=== PATIENT | male | born 1960 | race Caucasian/White ===

== ENCOUNTER 2017-03-07 10:09 | Inpatient (IN) | payer OTHER ==
[2017-03-07 10:56] VITALS: BMI 18.3
--- NOTE | 2017-03-07 13:30 | HP ---
CIWA Score - CIWA Score Nausea/Vomitin Muscle Tremors: 3 Anxiety: 2 Agitation: 3 Paroxysmal Sweats: 1-Minimal Palms Moist Orientation: 0-Oriented Tacttile Disturbances: 2-Mild Itch/Numbness/Burn Auditory Disturbances: 2-Mild Harshness/Frighten Visual Disturbances: 1-Very Mild Sensitivity Headache: 2-Mild CIWA-Ar Total Score: 19 Admission ROS BHS - HPI Chief Complaint: I AM HERE FOR DETOX FROM ALCOHOL AND COCAINE Allergies/Adverse Reactions: Allergies Allergy/AdvReac Type Severity Reaction Status Date / Time No Known Allergies Allergy Verified 03/07/17 11:55 History of Present Illness: THIS 56 YEARS OLD MALE WITH ALCOHOL AND COCAINE DEPENDENCE,SEEKING DETOX,LAST TREATMENT [facility] 06/28/15 TO 07/02/15 MULTIPLE ADMISSIONS IN DETOX HIV SINCE 1999 ON MED PERIPHERAL NEUROPATHY LONGEST PERIOD SOBRIETY 10 YEARS NICOTINE DEPENDENCE WEIGHT LOSS Exam Limitations: No Limitations - Ebola screening Have you traveled outside of the country in the last 21 days: No Have you had contact with anyone from an Ebola affected area: No Have you been sick,other than usual withdrawal symptoms: No Do you have a fever: No - Review of Systems Constitutional: Loss of Appetite, Malaise, Night Sweats, Weakness, Unintentional Wgt. Loss EENT: reports: Nose Congestion Respiratory: reports: No Symptoms reported Cardiac: reports: Palpitations GI: reports: Nausea, Poor Appetite, Abdominal cramping : reports: No Symptoms Reported Musculoskeletal: reports: Back Pain, Muscle Pain Integumentary: reports: Dryness Neuro: reports: Headache, Tremors Endocrine: reports: No Symptoms Reported Hematology: reports: Other (HIV) Psychiatric: reports: No Sypmtoms Reported, Judgement Intact, Mood/Affect Appropiate, Orientated x3 Patient History - Patient Medical History Hx Anemia: No Hx Asthma: No Hx Chronic Obstructive Pulmonary Disease (COPD): No Hx Cancer: No Hx Cardiac Disorders: No Hx Congestive Heart Failure: No Hx Hypertension: No Hx Hypercholesterolemia: No Hx Pacemaker: No HX Cerebrovascular Accident: No Hx Seizures: No Hx Dementia: No Hx Diabetes: No Hx Gastrointestinal Disorders: No Hx Liver Disease: No Hx Genitourinary Disorders: No Hx Sexually Transmitted Disorders: No Hx Renal Disease (ESRD): No Hx Thyroid Disease: No Hx Human Immunodeficiency Virus (HIV): Yes (SINCE 1999 AND ON ATRIPLA; neuropathy) Hx Hepatitis C: No Hx Depression: No Hx Suicide Attempt: No Hx Bipolar Disorder: No Hx Schizophrenia: No Other Medical History: NO SUICIDAL,NO HOMICIDAL - Patient Surgical History Past Surgical History: Yes Hx Neurologic Surgery: No Hx Cataract Extraction: No Hx Cardiac Surgery: No Hx Lung Surgery: No Hx Breast Surgery: No Hx Breast Biopsy: No Hx Abdominal Surgery: No Hx Appendectomy: No Hx Cholecystectomy: No Hx Genitourinary Surgery: No Hx Section: No Hx Orthopedic Surgery: No Other Surgical History: bilateral inguinal hernia repair in 03/2014 Anesthesia Reaction: No - PPD History Previous Implant?: Yes Documented Results: Negative w/proof Implanted On Prior [facility] Admission?: Yes Date: 08/31/14 Results: 0 mm PPD to be Administered?: Yes - Smoking Cessation Smoking history: Current every day smoker Have you smoked in the past 12 months: Yes Aproximately how many cigarettes per day: 6 Cigars Per Day: 0 Hx Chewing Tobacco Use: No Initiated information on smoking cessation: Yes 'Breaking Loose' booklet given: 03/07/17 - Substance & Tx. History Hx Alcohol Use: Yes Hx Substance Use: Yes Substance Use Type: Alcohol, Cocaine - Substances Abused Alcohol-vodka Route: Oral Frequency: Daily Amount used: 1/2 pt. Age of first use: 22 Date of Last Use: 03/05/17 Cocaine Route: Inhalation Frequency: 1-3 times last 30 days Amount used: 20$ Age of first use: 37 Date of Last Use: 03/04/17 Family Disease History - Family Disease History Family History: Denies Family Disease History: CA: Grandparent (colon ca) Admission Physical Exam S - Vital Signs Vital Signs: Vital Signs - 24 hr 03/07/17 10:51 Temperature 98.1 F Pulse Rate 110 H Respiratory 20 Rate Blood Pressure 166/95 - Physical General Appearance: Yes: Moderate Distress, Thin, Tremorous, Irritable, Anxious HEENTM: Yes: Normal ENT Inspection, DARRIUS, Pharynx Normal Respiratory: Yes: Within Normal Limits, Lungs Clear, Normal Breath Sounds Neck: Yes: Within Normal Limits, Supple, Trachea in good position Breast: Yes: Within Normal Limits Cardiology: Yes: Tachycardia Abdominal: Yes: Within Normal Limits, Normal Bowel Sounds, Non Tender, Soft, Surgical Scar Genitourinary: Yes: Within Normal Limits Back: Yes: Muscle Spasm Musculoskeletal: Yes: full range of Motion, Gait Steady, Back pain, Muscle Pain Extremities: Yes: Normal Range of Motion, Tremors 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, Fully Oriented, Alert, Motor Strength 5/5, Normal Mood/Affect, Normal Response Integumentary: Yes: Dry Lymphatic: Yes: Within Normal Limits - Diagnostic (1) Alcohol dependence with uncomplicated withdrawal Current Visit: No Status: Acute (2) Cocaine dependence Current Visit: No Status: Acute Qualifiers: Substance use status: uncomplicated Qualified Code(s): F14.20 - Cocaine dependence, uncomplicated (3) HIV (human immunodeficiency virus infection) Current Visit: No Status: Chronic (4) Peripheral neuropathy Current Visit: No Status: Chronic Qualifiers: Peripheral neuropathy type: polyneuropathy associated with critical illness Qualified Code(s): G62.81 - Critical illness polyneuropathy (5) Weight decrease Current Visit: Yes Status: Acute (6) Nicotine dependence Current Visit: Yes Status: Acute Cleared for Admission [facility] - Detox or Rehab [facility] Level of Care: Medically Managed Detox Regimen/Protocol: Librium [facility] Breath Alcohol Content Breath Alcohol Content: 0 Urine Drug Screen - Results Drug Screen Negative: No Urine Drug Screen Results: JW-Cocaine
[2017-03-07] MEDS ORDERED: MAGNESIUM CITRATE 300 ML BOTTLE PO PRN (13:52)
[2017-03-07] MEDS ORDERED: diphenhydrAMINE HCL 50 MG CAPSULE PO PRN (13:52)
[2017-03-07] MEDS ORDERED: guaiFENesin/D-METHORPHAN HB 10 ML UNIT-DOSE CUPS PO PRN (13:52)
[2017-03-07] MEDS ORDERED: IBUPROFEN 400 MG TABLET (FP) PO PRN (13:52)
[2017-03-07] MEDS ORDERED: MAGNESIUM HYDROX 2400MG/30ML ORAL SUSPENSION 30 ML CUP PO PRN (13:52)
[2017-03-07] MEDS ORDERED: hydrOXYzine PAMOATE 50 MG CAPSULE (FP) PO PRN (13:52)
[2017-03-07] MEDS ORDERED: LOPERAMIDE HCL 2 MG CAPSULE PO PRN (13:52)
[2017-03-07] MEDS ORDERED: MAG HYDROX/AL HYDROX/SIMETH 30 ML UNIT-DOSE CUP PO PRN (13:52)
[2017-03-07] MEDS ORDERED: P-EPHED 60MG/TRIPROLIDI 2.5MG TABLET PO PRN (13:52)
[2017-03-07] MEDS ORDERED: MENTHOL/PHENOL 1 EACH UD MM PRN (13:52)
[2017-03-07] MEDS ORDERED: ACETAMINOPHEN 325 MG TABLET (FP) PO PRN (13:52)
[2017-03-07] MEDS ORDERED: chlordiazePOXIDE HCL 25 MG CAPSULE PO PRN (13:52)
[2017-03-07] MEDS ORDERED: chlordiazePOXIDE HCL 25 MG CAPSULE PO ONE (14:03)
[2017-03-07] MEDS: GABAPENTIN 300 MG CAPSULE (FP) PO SCH ×2 (15:26→22:21)
[2017-03-07] MEDS: NICOTINE 21 MG/24 HOURS TOPICAL PATCH TD SCH (15:26)
[2017-03-07] MEDS: chlordiazePOXIDE HCL 25 MG CAPSULE PO SCH ×2 (18:18→22:21)
[2017-03-07] MEDS ORDERED: PATIENT'S OWN MEDICATION (NON-FORMULARY) (Efavirenz/Emtricitab/Tenofovir 1 TAB) PO SCH (22:00)
[2017-03-07] MEDS: EFAVIRENZ 600 MG TABLET PO SCH (22:21)
[2017-03-07] MEDS: THIAMINE HCL 100 MG TABLET (FP) PO SCH (22:21)
[2017-03-07] MEDS: EMTRICITABINE 200MG/TENOFOVIR 300MG PO SCH (22:22)
[2017-03-07 23:34] LABS: URINE APPEARANCE CLEAR; URINE BILIRUBIN NEGATIVE (NEGATIVE); URINE BLOOD 1+ (NEGATIVE); URINE COLOR YELLOW; URINE GLUCOSE (UA) 1+ (NEGATIVE); URINE KETONE 2+ (NEGATIVE); URINE LEUK ESTERASE NEGATIVE (NEGATIVE); URINE NITRITE NEGATIVE (NEGATIVE); URINE UROBILINOGEN NEGATIVE mg/dL (0.2-1.0)
[2017-03-07 23:42] LABS: URINE PROTEIN 1+ (NEGATIVE)
[2017-03-07 23:59] LABS: URINE MUCUS RARE; URINE RBC <1 /hpf (0-3); URINE WBC 3 /hpf (3-5)
[2017-03-08] MEDS: GABAPENTIN 300 MG CAPSULE (FP) PO SCH ×3 (05:44→22:58)
[2017-03-08] MEDS: chlordiazePOXIDE HCL 25 MG CAPSULE PO SCH ×4 (05:45→22:58)
[2017-03-08 10:24] LABS: MCH 32.9 pg (25.7-33.7); MCHC 33.2 g/dl (32.0-35.9); MEAN CELL VOLUME 99.1 fl (80-96); MEAN PLT VOLUME 7.9 fl (7.5-11.1); PLATELET COUNT 208 K/MM3 (134-434); RDW 14.6 % (11.9-15.9); WHITE BLOOD COUNT 4.4 K/mm3 (4.0-10.0)
[2017-03-08] MEDS: NICOTINE 21 MG/24 HOURS TOPICAL PATCH TD SCH (11:14)
[2017-03-08] MEDS: PRENATAL VITAMINS W/ FOLIC ACID TABLET (FP) PO SCH (11:14)
[2017-03-08 11:40] LABS: ALBUMIN 4.5 g/dl (3.4-5.0); ALK PHOS 106 U/L (45-117); ANION GAP 14 (8-16); BILIRUBIN,TOTAL 1.1 mg/dL (0.2-1.0); CALCIUM 9.2 mg/dL (8.5-10.1); CO2 24 mmol/L (21-32); CREATININE 1.1 mg/dL (0.7-1.3); GLUCOSE,RANDOM 289 mg/dL (74-106); SGOT/AST 101 U/L (15-37); SGPT/ALT 66 U/L (12-78); TOT PROT 7.7 g/dl (6.4-8.2)
--- NOTE | 2017-03-08 11:53 | PN ---
S CIWA - CIWA Score Nausea/Vomitin Muscle Tremors: 3 Anxiety: 3 Agitation: 2 Paroxysmal Sweats: 1-Minimal Palms Moist Orientation: 0-Oriented Tacttile Disturbances: 1-Very Mild Itch/Numbness Auditory Disturbances: 1-Very Mild Visual Disturbances: 1-Very Mild Sensitivity Headache: 2-Mild CIWA-Ar Total Score: 17 BHS Progress Note (SOAP) Subjective: alert,irritable,anxious,interrupted sleep,tremor Objective: 03/08/17 11:51 Vital Signs Temperature 96.4 F L 03/08/17 09:54 Pulse Rate 104 H 03/08/17 09:54 Respiratory Rate 18 03/08/17 09:54 Blood Pressure 149/100 03/08/17 09:54 O2 Sat by Pulse Oximetry (%) ekg nsr Laboratory Last Values WBC 4.4 K/mm3 (4.0-10.0) 03/08/17 06:11 RBC 4.19 M/mm3 (4.00-5.60) 03/08/17 06:11 Hgb 13.8 GM/dL (11.7-16.9) 03/08/17 06:11 Hct 41.5 % (35.4-49) 03/08/17 06:11 MCV 99.1 fl (80-96) H 03/08/17 06:11 MCH 32.9 pg (25.7-33.7) 03/08/17 06:11 MCHC 33.2 g/dl (32.0-35.9) 03/08/17 06:11 RDW 14.6 % (11.9-15.9) 03/08/17 06:11 Plt Count 208 K/MM3 (134-434) 03/08/17 06:11 MPV 7.9 fl (7.5-11.1) 03/08/17 06:11 Sodium 137 mmol/L (136-145) 03/08/17 06:11 Potassium 4.3 mmol/L (3.5-5.1) 03/08/17 06:11 Chloride 99 mmol/L (98-107) 03/08/17 06:11 Carbon Dioxide 24 mmol/L (21-32) D 03/08/17 06:11 Anion Gap 14 (8-16) 03/08/17 06:11 BUN 18 mg/dL (7-18) D 03/08/17 06:11 Creatinine 1.1 mg/dL (0.7-1.3) D 03/08/17 06:11 Creat Clearance w eGFR > 60 (>60) 03/08/17 06:11 Random Glucose 289 mg/dL (74-106) H D 03/08/17 06:11 Calcium 9.2 mg/dL (8.5-10.1) 03/08/17 06:11 Total Bilirubin 1.1 mg/dL (0.2-1.0) H D 03/08/17 06:11 AST 101 U/L (15-37) H 03/08/17 06:11 ALT 66 U/L (12-78) D 03/08/17 06:11 Alkaline Phosphatase 106 U/L (45-117) D 03/08/17 06:11 Total Protein 7.7 g/dl (6.4-8.2) 03/08/17 06:11 Albumin 4.5 g/dl (3.4-5.0) 03/08/17 06:11 Urine Color Yellow 03/07/17 15:44 Urine Appearance Clear 03/07/17 15:44 Urine pH 5.0 (5.0-8.0) D 03/07/17 15:44 Ur Specific [place] >= 1.030 (1.005-1.025) H 03/07/17 15:44 Urine Protein 1+ (NEGATIVE) H 03/07/17 15:44 Urine Glucose (UA) 1+ (NEGATIVE) H 03/07/17 15:44 Urine Ketones 2+ (NEGATIVE) H 03/07/17 15:44 Urine Blood 1+ (NEGATIVE) H 03/07/17 15:44 Urine Nitrite Negative (NEGATIVE) 03/07/17 15:44 Urine Bilirubin Negative (NEGATIVE) 03/07/17 15:44 Urine Urobilinogen Negative mg/dL (0.2-1.0) 03/07/17 15:44 Urine RBC <1 /hpf (0-3) 03/07/17 15:44 Urine WBC 3 /hpf (3-5) 03/07/17 15:44 Ur Epithelial Cells Rare /hpf (FEW) 03/07/17 15:44 Urine Mucus Rare 03/07/17 15:44 RPR Titer Nonreactive (NONREACTIVE) 03/08/17 06:11 Assessment: 03/08/17 11:52 withdrawal symptom Plan: continue detox,bgm monitoring
[2017-03-08] MEDS ORDERED: FLU VACCINE QUAD 60 MCG/0.5 ML (MDV 17-18) IM ONE (12:00)
[2017-03-08] MEDS: EFAVIRENZ 600 MG TABLET PO SCH (22:58)
[2017-03-08] MEDS: THIAMINE HCL 100 MG TABLET (FP) PO SCH (22:58)
[2017-03-08] MEDS: EMTRICITABINE 200MG/TENOFOVIR 300MG PO SCH (22:59)
[2017-03-09] MEDS: GABAPENTIN 300 MG CAPSULE (FP) PO SCH ×3 (05:33→22:45)
[2017-03-09] MEDS: chlordiazePOXIDE HCL 25 MG CAPSULE PO SCH ×2 (05:35→10:43)
--- NOTE | 2017-03-09 09:51 | EKG ---
Test Reason : Blood Pressure : / mmHG Vent. Rate : 071 BPM Atrial Rate : 071 BPM P-R Int : 130 ms QRS Dur : 100 ms QT Int : 384 ms P-R-T Axes : 071 078 076 degrees QTc Int : 417 ms NORMAL SINUS RHYTHM NORMAL ECG NO PREVIOUS ECGS AVAILABLE Confirmed by MD RONA, LUCY ([id number]) on 03/09/2017 9:51:14 AM Referred By: Confirmed By:LUCY REA MD
[2017-03-09] MEDS: PRENATAL VITAMINS W/ FOLIC ACID TABLET (FP) PO SCH (10:42)
[2017-03-09] MEDS: NICOTINE 21 MG/24 HOURS TOPICAL PATCH TD SCH (10:43)
--- NOTE | 2017-03-09 13:08 | PN ---
S CIWA - CIWA Score Nausea/Vomitin Muscle Tremors: 3 Anxiety: 3 Agitation: 2 Paroxysmal Sweats: 1-Minimal Palms Moist Orientation: 0-Oriented Tacttile Disturbances: 1-Very Mild Itch/Numbness Auditory Disturbances: 1-Very Mild Visual Disturbances: 0-None Headache: 2-Mild CIWA-Ar Total Score: 16 BHS Progress Note (SOAP) Subjective: alert,irritable,anxious,interrupted sleep,tremor Objective: 03/09/17 13:06 Vital Signs Temperature 96.1 F L 03/09/17 11:03 Pulse Rate 105 H 03/09/17 11:03 Respiratory Rate 18 03/09/17 11:03 Blood Pressure 149/86 03/09/17 11:03 O2 Sat by Pulse Oximetry (%) Laboratory Last Values WBC 4.4 K/mm3 (4.0-10.0) 03/08/17 06:11 RBC 4.19 M/mm3 (4.00-5.60) 03/08/17 06:11 Hgb 13.8 GM/dL (11.7-16.9) 03/08/17 06:11 Hct 41.5 % (35.4-49) 03/08/17 06:11 MCV 99.1 fl (80-96) H 03/08/17 06:11 MCH 32.9 pg (25.7-33.7) 03/08/17 06:11 MCHC 33.2 g/dl (32.0-35.9) 03/08/17 06:11 RDW 14.6 % (11.9-15.9) 03/08/17 06:11 Plt Count 208 K/MM3 (134-434) 03/08/17 06:11 MPV 7.9 fl (7.5-11.1) 03/08/17 06:11 Sodium 137 mmol/L (136-145) 03/08/17 06:11 Potassium 4.3 mmol/L (3.5-5.1) 03/08/17 06:11 Chloride 99 mmol/L (98-107) 03/08/17 06:11 Carbon Dioxide 24 mmol/L (21-32) D 03/08/17 06:11 Anion Gap 14 (8-16) 03/08/17 06:11 BUN 18 mg/dL (7-18) D 03/08/17 06:11 Creatinine 1.1 mg/dL (0.7-1.3) D 03/08/17 06:11 Creat Clearance w eGFR > 60 (>60) 03/08/17 06:11 POC Glucometer 117 UNITS (()) 03/09/17 06:24 Random Glucose 289 mg/dL (74-106) H D 03/08/17 06:11 Calcium 9.2 mg/dL (8.5-10.1) 03/08/17 06:11 Total Bilirubin 1.1 mg/dL (0.2-1.0) H D 03/08/17 06:11 AST 101 U/L (15-37) H 03/08/17 06:11 ALT 66 U/L (12-78) D 03/08/17 06:11 Alkaline Phosphatase 106 U/L (45-117) D 03/08/17 06:11 Total Protein 7.7 g/dl (6.4-8.2) 03/08/17 06:11 Albumin 4.5 g/dl (3.4-5.0) 03/08/17 06:11 Urine Color Yellow 03/07/17 15:44 Urine Appearance Clear 03/07/17 15:44 Urine pH 5.0 (5.0-8.0) D 03/07/17 15:44 Ur Specific [place] >= 1.030 (1.005-1.025) H 03/07/17 15:44 Urine Protein 1+ (NEGATIVE) H 03/07/17 15:44 Urine Glucose (UA) 1+ (NEGATIVE) H 03/07/17 15:44 Urine Ketones 2+ (NEGATIVE) H 03/07/17 15:44 Urine Blood 1+ (NEGATIVE) H 03/07/17 15:44 Urine Nitrite Negative (NEGATIVE) 03/07/17 15:44 Urine Bilirubin Negative (NEGATIVE) 03/07/17 15:44 Urine Urobilinogen Negative mg/dL (0.2-1.0) 03/07/17 15:44 Urine RBC <1 /hpf (0-3) 03/07/17 15:44 Urine WBC 3 /hpf (3-5) 03/07/17 15:44 Ur Epithelial Cells Rare /hpf (FEW) 03/07/17 15:44 Urine Mucus Rare 03/07/17 15:44 RPR Titer Nonreactive (NONREACTIVE) 03/08/17 06:11 Assessment: 03/09/17 13:07 withdrawal symptom Plan: continue detox,bgm monitoring
[2017-03-09] MEDS: chlordiazePOXIDE 5 MG CAPSULE PO SCH ×2 (16:59→22:44)
[2017-03-09] MEDS: EFAVIRENZ 600 MG TABLET PO SCH (22:44)
[2017-03-09] MEDS: THIAMINE HCL 100 MG TABLET (FP) PO SCH (22:45)
[2017-03-09] MEDS: EMTRICITABINE 200MG/TENOFOVIR 300MG PO SCH (22:46)
[2017-03-10] MEDS: chlordiazePOXIDE 5 MG CAPSULE PO SCH ×2 (06:38→10:45)
[2017-03-10] MEDS: GABAPENTIN 300 MG CAPSULE (FP) PO SCH ×3 (06:38→22:00)
--- NOTE | 2017-03-10 09:43 | PN ---
S Progress Note (SOAP) Subjective: ALERT,IRRITABLE,ANXIOUS,INTERRUPTED SLEEP, Objective: 03/10/17 09:41 Vital Signs Temperature 97.7 F 03/10/17 06:00 Pulse Rate 101 H 03/10/17 06:00 Respiratory Rate 16 03/10/17 06:00 Blood Pressure 132/85 03/10/17 06:00 O2 Sat by Pulse Oximetry (%) 03/10/17 09:42 BGM 142 Assessment: 03/10/17 09:42 WITHDRAWAL SYMPTOM Plan: CONTINUE DETOX,,BGM MONITORING,DISCHARGE IN AM
[2017-03-10] MEDS: PRENATAL VITAMINS W/ FOLIC ACID TABLET (FP) PO SCH (10:45)
[2017-03-10] MEDS: NICOTINE 21 MG/24 HOURS TOPICAL PATCH TD SCH (10:45)
[2017-03-10] MEDS: chlordiazePOXIDE HCL 10 MG CAPSULE PO SCH ×2 (17:28→22:00)
[2017-03-10] MEDS: THIAMINE HCL 100 MG TABLET (FP) PO SCH (22:00)
[2017-03-10] MEDS: EFAVIRENZ 600 MG TABLET PO SCH (22:00)
[2017-03-10] MEDS: EMTRICITABINE 200MG/TENOFOVIR 300MG PO SCH (22:00)
[2017-03-11] MEDS: chlordiazePOXIDE HCL 10 MG CAPSULE PO SCH (06:30)
[2017-03-11] MEDS: GABAPENTIN 300 MG CAPSULE (FP) PO SCH (06:31)
[2017-03-11 06:46] VITALS: BP 137/99; PULSE 102; TEMP 97.9
--- NOTE | 2017-03-11 08:23 | DS ---
[facility] Detox Discharge Summary Admission Date: 03/07/17 Discharge Date: 03/11/17 - History Present History: Alcohol Dependence, Cocaine Dependence Additional Comments: FOLLOW UP WITH AFTER CARE PROGRAM ARRANGEMENT Pertinent Past History: HIV PERIPHERAL NEUROPATHY NICOTINE DEPENDENCE WEIGHT LOSS - Physical Exam Results Vital Signs: Vital Signs Temperature 97.9 F 03/11/17 06:45 Pulse Rate 102 H 03/11/17 06:45 Respiratory Rate 16 03/11/17 06:45 Blood Pressure 137/99 03/11/17 06:45 O2 Sat by Pulse Oximetry (%) Pertinent Admission Physical Exam Findings: WITHDRAWAL SYMPTOM - Treatment Hospital Course: Detox Protocol Followed, Detoxed Safely, Responded well, Discharged Condition Good Patient has Accepted a Rehab Referral to: DECLINED - Medication Discharge Medications: Ambulatory Orders Efavirenz/Emtricitab/Tenofovir [Atripla -] 1 tab PO DAILY 08/29/14 Gabapentin [Neurontin -] 800 mg PO Q8H 03/23/15 - Diagnosis (1) Alcohol dependence with uncomplicated withdrawal Current Visit: No Status: Acute (2) Cocaine dependence Current Visit: No Status: Acute Qualifiers: Substance use status: uncomplicated Qualified Code(s): F14.20 - Cocaine dependence, uncomplicated (3) HIV (human immunodeficiency virus infection) Current Visit: No Status: Chronic (4) Peripheral neuropathy Current Visit: No Status: Chronic Qualifiers: Peripheral neuropathy type: polyneuropathy associated with critical illness Qualified Code(s): G62.81 - Critical illness polyneuropathy (5) Weight decrease Current Visit: Yes Status: Acute (6) Nicotine dependence Current Visit: Yes Status: Acute - AMA Did Patient Leave Against Medical Advice: No
== END 2017-03-11 07:07 | disposition home or self-care (01) | DRG 774 ==
LOC: YASAS 10:09 → Y6N 12:58
PROVIDERS: ADMIT Internal Medicine; ATTEND Internal Medicine
PROC: HZ2ZZZZ Detoxification Services for Substance Abuse Treatment (ICD-10-PCS; principal; 2017-03-07)
DX: F10.230 Alcohol dependence with withdrawal, uncomplicated (principal); F14.20 Cocaine dependence, uncomplicated; F17.210 Nicotine dependence, cigarettes, uncomplicated; Z21 Asymptomatic human immunodeficiency virus [HIV] infection status; G62.81 Critical illness polyneuropathy; R00.0 Tachycardia, unspecified; Z87.898 Personal history of other specified conditions
CPT/HCPCS: 36415; 80053; 81003; 81015; 85027; 86593; 90688; 93005; 93010; G0008

== ENCOUNTER 2017-10-24 08:39 | Inpatient (IN) | payer OTHER ==
[2017-10-24 09:35] VITALS: BMI 17.7
--- NOTE | 2017-10-24 13:08 | HP ---
CIWA Score - CIWA Score Nausea/Vomitin-No Nausea/No Vomiting Muscle Tremors: 4-Moderate,w/Arms Extend Anxiety: 4-Mod. Anxious/Guarded Agitation: 3 Paroxysmal Sweats: 1-Minimal Palms Moist Orientation: 0-Oriented Tacttile Disturbances: 3-Moderate Itch/Numb/Burn (legs) Auditory Disturbances: 0-None Visual Disturbances: 0-None Headache: 1-Very Mild CIWA-Ar Total Score: 16 Admission ROS BHS - HPI Chief Complaint: ALCOHOL WITHDRAWAL SX Allergies/Adverse Reactions: Allergies Allergy/AdvReac Type Severity Reaction Status Date / Time No Known Allergies Allergy Verified 10/24/17 09:53 History of Present Illness: 57 Y/O H/MALE WITH A HX OF ALCOHOL AND COCAINE DEPENDENCE DEPENDENCE SEEKING DETOX [place]. PT REPORTS THAT "MY DR MS MIGUEL AT [facility] SAY I NEED DETOX. YOU SEE I'M HIV+". PT HAS BEEN IN [place] MULTIPLE TIMES BUT REPORTS NO KNOWN PERIODS OF SOBRIETY. PT REPORTS HE IS CURRENTLY TAKING HIS ATRIPLA BUT AFRAID TO BRING IT WITH HIM "BECAUSE THE POLICE DON'T WANT ANYONE CARRYING MEDICATION ON THE STREET OR THEY WILL THROW THEM AWAY. Exam Limitations: No Limitations - Ebola screening Have you traveled outside of the country in the last 21 days: No Have you had contact with anyone from an Ebola affected area: No Have you been sick,other than usual withdrawal symptoms: No - Review of Systems Constitutional: Chills, Night Sweats, Unintentional Wgt. Loss EENT: reports: Blurred Vision (WEARS GLASSES), Nose Congestion, Dental Problems (TEETH IN POOR REPAIR'FRACTUERED LOWER JAW.) Respiratory: reports: Cough, Shortness of Breath (HX EMPHYSEMA--NO MED), Wheezing, Productive cough ("CLEAR PHLEGM") Cardiac: reports: No Symptoms Reported GI: reports: Abdominal cramping : reports: Frequency Musculoskeletal: reports: No Symptoms Reported Integumentary: reports: No Symptoms Reported Neuro: reports: Headache, Numbness (LOWER EXTREMITES), Tingling (LOWER EXTREMITIES), Tremors, Unsteady Gait Endocrine: reports: No Symptoms Reported Hematology: reports: No Symptoms Reported Psychiatric: reports: Orientated x3 Other Systems: Reviewed and Negative Patient History - Patient Medical History Hx Anemia: No Hx Asthma: No Hx Chronic Obstructive Pulmonary Disease (COPD): Yes ("EMPHYSEMA- NO MEDS") Hx Cancer: No Hx Cardiac Disorders: No Hx Congestive Heart Failure: No Hx Hypertension: Yes (NO MED) Hx Hypercholesterolemia: No Hx Pacemaker: No HX Cerebrovascular Accident: No Hx Seizures: No Hx Dementia: No Hx Diabetes: No Hx Gastrointestinal Disorders: Yes (ZANTAC IN THE PAST) Hx Liver Disease: No Hx Genitourinary Disorders: No Hx Sexually Transmitted Disorders: Yes (DENIES) Hx Renal Disease (ESRD): No Hx Thyroid Disease: No Hx Human Immunodeficiency Virus (HIV): Yes (SINCE 1999 AND ON ATRIPLA; neuropathy) Hx Hepatitis C: No Hx Depression: No Hx Suicide Attempt: No (DENIES S/I) Hx Bipolar Disorder: No Hx Schizophrenia: No - Patient Surgical History Past Surgical History: Yes Hx Neurologic Surgery: No Hx Cataract Extraction: No Hx Cardiac Surgery: No Hx Lung Surgery: No Hx Breast Surgery: No Hx Breast Biopsy: No Hx Abdominal Surgery: No Hx Appendectomy: No Hx Cholecystectomy: No Hx Genitourinary Surgery: No Hx Orthopedic Surgery: No Other Surgical History: bilateral inguinal hernia repair in 03/2014 Anesthesia Reaction: No - PPD History Previous Implant?: Yes Documented Results: Negative w/proof Implanted On Prior [facility] Admission?: Yes Date: 08/31/14 Results: 0 mm PPD to be Administered?: Yes - Reproductive History Patient is a Female of Child Bearing Age (11 -55 yrs old): No (MALE) - Smoking Cessation Smoking history: Current every day smoker Have you smoked in the past 12 months: Yes Aproximately how many cigarettes per day: 10 Cigars Per Day: 0 Hx Chewing Tobacco Use: No Initiated information on smoking cessation: Yes 'Breaking Loose' booklet given: 10/24/17 - Substance & Tx. History Hx Alcohol Use: Yes (VODKA) Hx Substance Use: Yes (COCAINE) Substance Use Type: Alcohol, Cocaine Hx Substance Use Treatment: Yes (LAST [place] AT [facility]) - Substances Abused Alcohol Route: Oral Frequency: Daily Amount used: 1 PINT DAILY (VODKA) Age of first use: 22 Date of Last Use: 10/23/17 Cocaine Route: Inhalation Frequency: 1-2 times per week Amount used: $20 Age of first use: 32 Date of Last Use: 10/22/17 Family Disease History - Family Disease History Family Disease History: CA: Grandparent (colon ca) Admission Physical Exam [facility] - Vital Signs Vital Signs: Vital Signs - 24 hr 10/24/17 09:26 Temperature 97.1 F L Pulse Rate 86 Respiratory 20 Rate Blood Pressure 150/100 - Physical General Appearance: Yes: Moderate Distress, Irritable, Anxious HEENTM: Yes: EOMI, Normocephalic, DARRIUS, Pharynx Normal Respiratory: Yes: Chest Non-Tender, Lungs Clear, Normal Breath Sounds, No Respiratory Distress Neck: Yes: No masses,lesions,Nodules, Supple, Trachea in good position Breast: Yes: Breast Exam Deferred Cardiology: Yes: Regular Rhythm, Regular Rate, S1, S2 Abdominal: Yes: Normal Bowel Sounds, Non Tender, Flat, Soft Genitourinary: Yes: Other (N/C) Musculoskeletal: Yes: full range of Motion, Gait Steady Extremities: Yes: Normal Range of Motion, Non-Tender, Tremors 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, Fully Oriented, Alert, Motor Strength 5/5 Integumentary: Yes: Dry, Warm Lymphatic: Yes: Within Normal Limits - Diagnostic (1) Alcohol dependence with uncomplicated withdrawal Current Visit: Yes Status: Acute (2) Cocaine dependence Current Visit: Yes Status: Acute Qualifiers: Substance use status: uncomplicated Qualified Code(s): F14.20 - Cocaine dependence, uncomplicated (3) Nicotine dependence Current Visit: Yes Status: Acute Qualifiers: Nicotine product type: cigarettes Substance use status: in withdrawal Qualified Code(s): F17.213 - Nicotine dependence, cigarettes, with withdrawal (4) Weight decrease Current Visit: Yes Status: Acute (5) HIV (human immunodeficiency virus infection) Current Visit: Yes Status: Chronic (6) Peripheral neuropathy Current Visit: Yes Status: Chronic Qualifiers: Peripheral neuropathy type: polyneuropathy associated with underlying disease Qualified Code(s): G63 - Polyneuropathy in diseases classified elsewhere Cleared for Admission [facility] - Detox or Rehab S Level of Care: Medically Managed Detox Regimen/Protocol: Librium [facility] Breath Alcohol Content Breath Alcohol Content: 0 Urine Drug Screen - Results Drug Screen Negative: No Urine Drug Screen Results: JW-Cocaine, BZO-Benzodiazepines
[2017-10-24] MEDS ORDERED: MAG HYDROX/AL HYDROX/SIMETH 30 ML UNIT-DOSE CUP PO PRN (13:25)
[2017-10-24] MEDS ORDERED: MENTHOL/PHENOL 1 EACH UD MM PRN (13:25)
[2017-10-24] MEDS ORDERED: MAGNESIUM CITRATE 300 ML BOTTLE PO PRN (13:25)
[2017-10-24] MEDS ORDERED: P-EPHED 60MG/TRIPROLIDI 2.5MG TABLET PO PRN (13:25)
[2017-10-24] MEDS ORDERED: chlordiazePOXIDE HCL 25 MG CAPSULE PO PRN (13:25)
[2017-10-24] MEDS ORDERED: guaiFENesin/D-METHORPHAN HB 10 ML UNIT-DOSE CUPS PO PRN (13:25)
[2017-10-24] MEDS ORDERED: LOPERAMIDE HCL 2 MG CAPSULE PO PRN (13:25)
[2017-10-24] MEDS ORDERED: NICOTINE POLACRILEX 2 MG GUM BUC PRN (13:25)
[2017-10-24] MEDS ORDERED: IBUPROFEN 400 MG TABLET (FP) PO PRN (13:25)
[2017-10-24] MEDS ORDERED: MAGNESIUM HYDROX 2400MG/30ML ORAL SUSPENSION 30 ML CUP PO PRN (13:25)
[2017-10-24] MEDS ORDERED: PATIENT'S OWN MEDICATION (NON-FORMULARY) (Efavirenz/Emtricitab/Tenofovir 1 TAB) PO SCH (13:30)
[2017-10-24] MEDS ORDERED: ACETAMINOPHEN 325 MG TABLET (FP) PO PRN (13:50)
[2017-10-24] MEDS ORDERED: cloNIDine HCL 0.1 MG TABLET PO ONE (14:15)
[2017-10-24] MEDS ORDERED: chlordiazePOXIDE HCL 25 MG CAPSULE PO ONE (14:15)
[2017-10-24] MEDS: GABAPENTIN 300 MG CAPSULE (FP) PO SCH ×2 (15:06→22:55)
[2017-10-24] MEDS: NICOTINE 14 MG/24 HOURS TOPICAL PATCH TD SCH (15:06)
--- NOTE | 2017-10-24 16:12 | EKG ---
Test Reason : Blood Pressure : / mmHG Vent. Rate : 082 BPM Atrial Rate : 082 BPM P-R Int : 130 ms QRS Dur : 100 ms QT Int : 392 ms P-R-T Axes : 073 067 071 degrees QTc Int : 457 ms NORMAL SINUS RHYTHM NORMAL ECG WHEN COMPARED WITH ECG OF 07-MAR-2017 14:44, NO SIGNIFICANT CHANGE WAS FOUND Confirmed by VERONICA QUESADA MD ([id number]) on 10/24/2017 4:11:41 PM Referred By: Confirmed By:VERONICA QUESADA MD
[2017-10-24 17:12] LABS: HEMATOCRIT 42.4 % (35.4-49); HEMOGLOBIN 14.7 GM/dL (11.7-16.9); MCH 33.9 pg (25.7-33.7); MCHC 34.6 g/dl (32.0-35.9); MEAN CELL VOLUME 97.9 fl (80-96); MEAN PLT VOLUME 8.2 fl (7.5-11.1); PLATELET COUNT 211 K/MM3 (134-434); RBC 4.33 M/mm3 (4.00-5.60); RDW 13.7 % (11.9-15.9); WHITE BLOOD COUNT 4.5 K/mm3 (4.0-10.0)
[2017-10-24 17:13] LABS: ALBUMIN 4.6 g/dl (3.4-5.0); CHLORIDE 100 mmol/L (98-107); POTASSIUM 4.8 mmol/L (3.5-5.1); SODIUM 140 mmol/L (136-145)
[2017-10-24 17:20] LABS: ALK PHOS 141 U/L (45-117); ANION GAP 11 (8-16); BILIRUBIN,TOTAL 0.8 mg/dL (0.2-1.0); BLOOD UREA NITROGEN 10 mg/dL (7-18); CALCIUM 9.6 mg/dL (8.5-10.1); CO2 29 mmol/L (21-32); CREATININE 0.8 mg/dL (0.7-1.3); GLUCOSE,RANDOM 225 mg/dL (74-106); SGOT/AST 294 U/L (15-37); SGPT/ALT 153 U/L (12-78); TOT PROT 7.9 g/dl (6.4-8.2)
[2017-10-24] MEDS: chlordiazePOXIDE HCL 25 MG CAPSULE PO SCH ×2 (17:45→22:55)
[2017-10-24 17:59] LABS: URINE APPEARANCE SLCLOUDY; URINE BILIRUBIN NEGATIVE (<2.0 mg/dL); URINE COLOR AMBER; URINE GLUCOSE (UA) NEGATIVE (NEGATIVE); URINE KETONE 2+ (NEGATIVE); URINE LEUK ESTERASE NEGATIVE (NEGATIVE); URINE NITRITE POSITIVE (NEGATIVE); URINE PROTEIN 1+ (NEGATIVE); URINE UROBILINOGEN 4.0 E.U/dl mg/dL (0.2-1.0)
[2017-10-24 18:04] LABS: EPI CELLS RARE /HPF (FEW); URINE BACTERIA RARE /hpf (NONE SEEN); URINE MUCUS RARE
[2017-10-24] MEDS ORDERED: MELATONIN 5 MG TABLETS PO PRN (22:00)
[2017-10-24] MEDS: THIAMINE HCL 100 MG TABLET (FP) PO SCH (22:55)
[2017-10-25] MEDS: GABAPENTIN 300 MG CAPSULE (FP) PO SCH ×3 (05:50→22:04)
[2017-10-25] MEDS: chlordiazePOXIDE HCL 25 MG CAPSULE PO SCH ×4 (05:50→22:04)
[2017-10-25] MEDS ORDERED: PRENATAL VITAMINS W/ FOLIC ACID TABLET (FP) PO SCH (10:00)
[2017-10-25] MEDS ORDERED: EFAVIRENZ 600 MG TABLET PO SCH (10:00)
[2017-10-25] MEDS ORDERED: EMTRICITABINE 200MG/TENOFOVIR 300MG PO SCH (10:00)
[2017-10-25] MEDS: NICOTINE 14 MG/24 HOURS TOPICAL PATCH TD SCH (10:41)
--- NOTE | 2017-10-25 12:40 | PN ---
[facility] CIWA - CIWA Score Nausea/Vomitin-No Nausea/No Vomiting Muscle Tremors: 4-Moderate,w/Arms Extend Anxiety: 4-Mod. Anxious/Guarded Agitation: 3 Paroxysmal Sweats: No Perspiration Orientation: 0-Oriented Tacttile Disturbances: 3-Moderate Itch/Numb/Burn Auditory Disturbances: 2-Mild Harshness/Frighten Visual Disturbances: 1-Very Mild Sensitivity Headache: 0-None Present CIWA-Ar Total Score: 17 S Progress Note (SOAP) Subjective: Tremors, Fatigue, Body Aches. Objective: PATIENT A & O X 3, OBSERVED AMBULATING ON UNIT. NO ACUTE DISTRESS. 10/25/17 12:37 Vital Signs Temperature 95.1 F L 10/25/17 10:00 Pulse Rate 110 H 10/25/17 10:00 Respiratory Rate 20 10/25/17 10:00 Blood Pressure 125/73 10/25/17 10:00 O2 Sat by Pulse Oximetry (%) Laboratory Tests 10/24/17 10/24/17 10/24/17 14:00 14:00 14:00 WBC 4.5 RBC 4.33 Hgb 14.7 Hct 42.4 MCV 97.9 H MCH 33.9 H MCHC 34.6 RDW 13.7 Plt Count 211 MPV 8.2 Sodium 140 Potassium 4.8 Chloride 100 Carbon Dioxide 29 D Anion Gap 11 BUN 10 D Creatinine 0.8 D Creat Clearance w eGFR > 60 Random Glucose 225 H D Calcium 9.6 Total Bilirubin 0.8 D AST 294 H D ALT 153 H D Alkaline Phosphatase 141 H D Total Protein 7.9 Albumin 4.6 Urine Color Urine Appearance Urine pH Ur Specific [place] Urine Protein Urine Glucose (UA) Urine Ketones Urine Blood Urine Nitrite Urine Bilirubin Urine Urobilinogen Ur Leukocyte Esterase Urine WBC (Auto) Urine RBC (Auto) Ur Epithelial Cells Urine Bacteria Urine Mucus RPR Titer Nonreactive 10/24/17 15:46 WBC RBC Hgb Hct MCV MCH MCHC RDW Plt Count MPV Sodium Potassium Chloride Carbon Dioxide Anion Gap BUN Creatinine Creat Clearance w eGFR Random Glucose Calcium Total Bilirubin AST ALT Alkaline Phosphatase Total Protein Albumin Urine Color [place] Urine Appearance Slcloudy Urine pH 6.0 Ur Specific [place] 1.019 Urine Protein 1+ H Urine Glucose (UA) Negative Urine Ketones 2+ H Urine Blood 1+ H Urine Nitrite Positive Urine Bilirubin Negative Urine Urobilinogen 4.0 e.u/dl Ur Leukocyte Esterase Negative Urine WBC (Auto) 8 Urine RBC (Auto) 2 Ur Epithelial Cells Rare Urine Bacteria Rare Urine Mucus Rare RPR Titer LABS NOTED. Assessment: 10/25/17 12:38 WITHDRAWAL SYMPTOMS. Plan: CONTINUE DETOX. INCREASE DAILY PO FLUID INTAKE. HEPATIC FUNCTION PANEL, PT/INR TOMORROW FOR ABNORMAL ADMISSION LIVER ENZYME VALUES. REPEAT UA WITH URINE C + S FOR ADMISSION UA ABNORMALITIES. BGM ACBK FOR ELEVATED ADMISSION RANDOM GLUCOSE LEVEL.
[2017-10-25 18:11] LABS: URINE APPEARANCE CLOUDY; URINE BILIRUBIN NEGATIVE (<2.0 mg/dL); URINE COLOR AMBER; URINE GLUCOSE (UA) NEGATIVE (NEGATIVE); URINE KETONE NEGATIVE (NEGATIVE); URINE LEUK ESTERASE TRACE (NEGATIVE); URINE NITRITE POSITIVE (NEGATIVE); URINE PROTEIN NEGATIVE (NEGATIVE); URINE UROBILINOGEN NEGATIVE mg/dL (0.2-1.0)
[2017-10-25 18:22] LABS: TRIPLE PHOSPHATE CRYSTAL RARE /hpf (NONE SEEN); URINE BACTERIA RARE /hpf (NONE SEEN); URINE MUCUS RARE
[2017-10-25] MEDS: THIAMINE HCL 100 MG TABLET (FP) PO SCH (22:04)
[2017-10-26] MEDS: GABAPENTIN 300 MG CAPSULE (FP) PO SCH (05:41)
[2017-10-26] MEDS: chlordiazePOXIDE HCL 25 MG CAPSULE PO SCH (05:41)
[2017-10-26 06:14] VITALS: BP 130/80; PULSE 92; TEMP 96.5
[2017-10-26 10:44] LABS: INR 0.83 (0.82-1.09); PROTHROMBIN TIME (PATIENT) 9.4 SEC (9.7-13.0)
--- NOTE | 2017-10-26 14:43 | PN ---
[facility] CIWA - CIWA Score Nausea/Vomitin-No Nausea/No Vomiting Muscle Tremors: 3 Anxiety: 4-Mod. Anxious/Guarded Agitation: 4-Moderately Restless Paroxysmal Sweats: No Perspiration Orientation: 0-Oriented Tacttile Disturbances: 2-Mild Itch/Numbness/Burn Auditory Disturbances: 2-Mild Harshness/Frighten Visual Disturbances: 0-None Headache: 0-None Present CIWA-Ar Total Score: 15 S Progress Note (SOAP) Subjective: Tremors, Anxious, Body Aches. Objective: PATIENT A & O X 3, OBSERVED AMBULATING ON UNIT. NO ACUTE DISTRESS. 10/26/17 14:41 Vital Signs Temperature 96.5 F L 10/26/17 06:13 Pulse Rate 92 H 10/26/17 06:13 Respiratory Rate 18 10/26/17 06:13 Blood Pressure 130/80 10/26/17 06:13 O2 Sat by Pulse Oximetry (%) Laboratory Tests 10/24/17 10/24/17 10/24/17 14:00 14:00 14:00 WBC 4.5 RBC 4.33 Hgb 14.7 Hct 42.4 MCV 97.9 H MCH 33.9 H MCHC 34.6 RDW 13.7 Plt Count 211 MPV 8.2 PT with INR INR Sodium 140 Potassium 4.8 Chloride 100 Carbon Dioxide 29 D Anion Gap 11 BUN 10 D Creatinine 0.8 D Creat Clearance w eGFR > 60 POC Glucometer Random Glucose 225 H D Calcium 9.6 Total Bilirubin 0.8 D AST 294 H D ALT 153 H D Alkaline Phosphatase 141 H D Total Protein 7.9 Albumin 4.6 Urine Color Urine Appearance Urine pH Ur Specific [place] Urine Protein Urine Glucose (UA) Urine Ketones Urine Blood Urine Nitrite Urine Bilirubin Urine Urobilinogen Ur Leukocyte Esterase Urine WBC (Auto) Urine RBC (Auto) Ur Epithelial Cells Triple Phos Crystals Urine Bacteria Urine Mucus RPR Titer Nonreactive 10/24/17 10/25/17 10/26/17 15:46 17:30 05:40 WBC RBC Hgb Hct MCV MCH MCHC RDW Plt Count MPV PT with INR INR Sodium Potassium Chloride Carbon Dioxide Anion Gap BUN Creatinine Creat Clearance w eGFR POC Glucometer 187 Random Glucose Calcium Total Bilirubin AST ALT Alkaline Phosphatase Total Protein Albumin Urine Color Clemencia Clemencia Urine Appearance Slcloudy Cloudy Urine pH 6.0 7.0 Ur Specific [place] 1.019 1.015 Urine Protein 1+ H Negative Urine Glucose (UA) Negative Negative Urine Ketones 2+ H Negative Urine Blood 1+ H Negative Urine Nitrite Positive Positive Urine Bilirubin Negative Negative Urine Urobilinogen 4.0 e.u/dl Negative Ur Leukocyte Esterase Negative Trace Urine WBC (Auto) 8 10 Urine RBC (Auto) 2 <1 Ur Epithelial Cells Rare Triple Phos Crystals Rare Urine Bacteria Rare Rare Urine Mucus Rare Rare RPR Titer 10/26/17 08:00 WBC RBC Hgb Hct MCV MCH MCHC RDW Plt Count MPV PT with INR 9.40 L INR 0.83 L Sodium Potassium Chloride Carbon Dioxide Anion Gap BUN Creatinine Creat Clearance w eGFR POC Glucometer Random Glucose Calcium Total Bilirubin AST ALT Alkaline Phosphatase Total Protein Albumin Urine Color Urine Appearance Urine pH Ur Specific [place] Urine Protein Urine Glucose (UA) Urine Ketones Urine Blood Urine Nitrite Urine Bilirubin Urine Urobilinogen Ur Leukocyte Esterase Urine WBC (Auto) Urine RBC (Auto) Ur Epithelial Cells Triple Phos Crystals Urine Bacteria Urine Mucus RPR Titer LABS NOTED. Assessment: 10/26/17 14:42 WITHDRAWAL SYMPTOMS. Plan: CONTINUE DETOX.
--- NOTE | 2017-10-26 14:46 | DS ---
[facility] Detox Discharge Summary Admission Date: 10/24/17 Discharge Date: 10/26/17 - History Present History: Alcohol Dependence, Cocaine Dependence Additional Comments: PATIENT HAS A PERSONAL ISSUE TO ATTEND TO AND DOES NOT WISH TO STAY TO COMPLETE DETOX REGIMEN. RISKS OF LEAVING DETOX UNIT AGAINST MEDICAL ADVICE AND PRIOR TO COMPLETION OF DETOX REGIMEN EXPLAINED TO PATIENT. PATIENT ADVISED TO GO IMMEDIATELY TO NEAREST ER SHOULD ANY INTOLERABLE DETOX SYMPTOMS DEVELOP AT ANY TIME. PATIENT LEFT DETOX UNIT IN STABLE MEDICAL CONDITION. Pertinent Past History: Peripheral Neuropathy, Weight Decrease, HIV, Nicotine Dependence. - Physical Exam Results Vital Signs: Vital Signs Temperature 96.5 F L 10/26/17 06:13 Pulse Rate 92 H 10/26/17 06:13 Respiratory Rate 18 10/26/17 06:13 Blood Pressure 130/80 10/26/17 06:13 O2 Sat by Pulse Oximetry (%) Pertinent Admission Physical Exam Findings: WITHDRAWAL SYMPTOMS. Laboratory Tests 10/24/17 10/24/17 10/24/17 14:00 14:00 14:00 WBC 4.5 RBC 4.33 Hgb 14.7 Hct 42.4 MCV 97.9 H MCH 33.9 H MCHC 34.6 RDW 13.7 Plt Count 211 MPV 8.2 PT with INR INR Sodium 140 Potassium 4.8 Chloride 100 Carbon Dioxide 29 D Anion Gap 11 BUN 10 D Creatinine 0.8 D Creat Clearance w eGFR > 60 POC Glucometer Random Glucose 225 H D Calcium 9.6 Total Bilirubin 0.8 D AST 294 H D ALT 153 H D Alkaline Phosphatase 141 H D Total Protein 7.9 Albumin 4.6 Urine Color Urine Appearance Urine pH Ur Specific [place] Urine Protein Urine Glucose (UA) Urine Ketones Urine Blood Urine Nitrite Urine Bilirubin Urine Urobilinogen Ur Leukocyte Esterase Urine WBC (Auto) Urine RBC (Auto) Ur Epithelial Cells Triple Phos Crystals Urine Bacteria Urine Mucus RPR Titer Nonreactive 10/24/17 10/25/17 10/26/17 15:46 17:30 05:40 WBC RBC Hgb Hct MCV MCH MCHC RDW Plt Count MPV PT with INR INR Sodium Potassium Chloride Carbon Dioxide Anion Gap BUN Creatinine Creat Clearance w eGFR POC Glucometer 187 Random Glucose Calcium Total Bilirubin AST ALT Alkaline Phosphatase Total Protein Albumin Urine Color Clemencia Clemencia Urine Appearance Slcloudy Cloudy Urine pH 6.0 7.0 Ur Specific [place] 1.019 1.015 Urine Protein 1+ H Negative Urine Glucose (UA) Negative Negative Urine Ketones 2+ H Negative Urine Blood 1+ H Negative Urine Nitrite Positive Positive Urine Bilirubin Negative Negative Urine Urobilinogen 4.0 e.u/dl Negative Ur Leukocyte Esterase Negative Trace Urine WBC (Auto) 8 10 Urine RBC (Auto) 2 <1 Ur Epithelial Cells Rare Triple Phos Crystals Rare Urine Bacteria Rare Rare Urine Mucus Rare Rare RPR Titer 10/26/17 08:00 WBC RBC Hgb Hct MCV MCH MCHC RDW Plt Count MPV PT with INR 9.40 L INR 0.83 L Sodium Potassium Chloride Carbon Dioxide Anion Gap BUN Creatinine Creat Clearance w eGFR POC Glucometer Random Glucose Calcium Total Bilirubin AST ALT Alkaline Phosphatase Total Protein Albumin Urine Color Urine Appearance Urine pH Ur Specific [place] Urine Protein Urine Glucose (UA) Urine Ketones Urine Blood Urine Nitrite Urine Bilirubin Urine Urobilinogen Ur Leukocyte Esterase Urine WBC (Auto) Urine RBC (Auto) Ur Epithelial Cells Triple Phos Crystals Urine Bacteria Urine Mucus RPR Titer LABS NOTED. - Treatment Hospital Course: Detoxed Safely - Medication Discharge Medications: Ambulatory Orders Efavirenz/Emtricitab/Tenofovir [Atripla Tablet -] 1 tab PO DAILY 08/29/14 Gabapentin 300 mg PO TID 10/24/17 - Diagnosis (1) Alcohol dependence with uncomplicated withdrawal Status: Acute (2) Cocaine dependence Status: Acute Qualifiers: Substance use status: uncomplicated Qualified Code(s): F14.20 - Cocaine dependence, uncomplicated (3) Nicotine dependence Status: Acute Qualifiers: Nicotine product type: cigarettes Substance use status: in withdrawal Qualified Code(s): F17.213 - Nicotine dependence, cigarettes, with withdrawal (4) Weight decrease Status: Acute (5) HIV (human immunodeficiency virus infection) Status: Chronic (6) Peripheral neuropathy Status: Chronic Qualifiers: Peripheral neuropathy type: polyneuropathy associated with underlying disease Qualified Code(s): G63 - Polyneuropathy in diseases classified elsewhere - AMA Did Patient Leave Against Medical Advice: Yes (PT HAS PERSONAL ISSUE AND DOES NOT WISH TO STAY TO COMPLETE DETOX REGIMEN.)
[2017-10-26] MEDS ORDERED: chlordiazePOXIDE 5 MG CAPSULE PO SCH (17:00)
[2017-10-27] MEDS ORDERED: chlordiazePOXIDE HCL 10 MG CAPSULE PO SCH (17:00)
== END 2017-10-26 09:25 | disposition left against medical advice (07) | DRG 770 ==
LOC: YASAS 08:39 → Y3N 14:08
PROVIDERS: ADMIT Internal Medicine; ATTEND Internal Medicine
PROC: HZ2ZZZZ Detoxification Services for Substance Abuse Treatment (ICD-10-PCS; principal; 2017-10-24)
DX: F10.230 Alcohol dependence with withdrawal, uncomplicated (principal); F14.20 Cocaine dependence, uncomplicated; F17.210 Nicotine dependence, cigarettes, uncomplicated; G62.9 Polyneuropathy, unspecified; R63.4 Abnormal weight loss; Z68.1 Body mass index [BMI] 19.9 or less, adult; J43.8 Other emphysema; Z21 Asymptomatic human immunodeficiency virus [HIV] infection status; Z87.19 Personal history of other diseases of the digestive system
CPT/HCPCS: 36415; 80053; 81003; 81015; 82962; 85027; 85610; 86593; 87086; 87186; 93005; 93010; J0735

== ENCOUNTER 2018-05-10 09:02 | Inpatient (IN) | payer OTHER ==
[2018-05-10 09:30] VITALS: BMI 18.6
--- NOTE | 2018-05-10 09:46 | HP ---
CIWA Score Nausea/Vomitin Muscle Tremors: 2 Anxiety: 2 Agitation: 2 Paroxysmal Sweats: 1-Minimal Palms Moist Orientation: 0-Oriented Tacttile Disturbances: 1-Very Mild Itch/Numbness Auditory Disturbances: 1-Very Mild Visual Disturbances: 0-None Headache: 2-Mild CIWA-Ar Total Score: 13 - Admission Criteria [facility] Guidelines: Admission for Medically Managed Detox: Requires at least one of the followin. CIWA greater than 12 2. Seizures within the past 24 hours 3. Delirium tremens within the past 24 hours 4. Hallucinations within the past 24 hours 5. Acute intervention needed for co occurring medical disorder 6. Acute intervention needed for co occurring psychiatric disorder 7. Severe withdrawal that cannot be handled at a lower level of care (continued vomiting, continued diarrhea, abnormal vital signs) requiring intravenous medication and/or fluids 8. Patient presents the following: CIWA greater than 12 Admission Criteria Met: Admission criteria met Admission ROS S - HPI Chief Complaint: i am here for detox from alcohol and cocaine Allergies/Adverse Reactions: Allergies Allergy/AdvReac Type Severity Reaction Status Date / Time No Known Allergies Allergy Verified 05/10/18 10:47 History of Present Illness: this 58 years old male with alcohol and cocaine dependence,seeking detox, withdrawal symptom,last detox 10/24/17 to 10/26/17 detox syncope alcohol related seen in [facility] last night hiv since 1999 weight loss nicotine dependence multiple admissions in detox but keep relapsing longest sobriety 12 years Exam Limitations: No Limitations - Ebola screening Have you traveled outside of the country in the last 21 days: No (N) Have you had contact with anyone from an Ebola affected area: No Have you been sick,other than usual withdrawal symptoms: No Do you have a fever: No - Review of Systems Constitutional: Loss of Appetite, Malaise, Night Sweats, Changes in sleep, Weakness, Unintentional Wgt. Loss EENT: reports: Nose Congestion Respiratory: reports: No Symptoms reported Cardiac: reports: No Symptoms Reported GI: reports: Diarrhea, Nausea, Abdominal cramping : reports: No Symptoms Reported Musculoskeletal: reports: Back Pain, Muscle Pain Integumentary: reports: Dryness Neuro: reports: Headache, Tremors Endocrine: reports: No Symptoms Reported Hematology: reports: No Symptoms Reported, Other (hiv) Psychiatric: reports: No Sypmtoms Reported, Judgement Intact, Mood/Affect Appropiate, Orientated x3 Patient History - Patient Medical History Hx Anemia: No Hx Asthma: No Hx Chronic Obstructive Pulmonary Disease (COPD): Yes ("EMPHYSEMA- NO MEDS") Hx Cancer: No Hx Cardiac Disorders: No Hx Congestive Heart Failure: No Hx Hypertension: Yes (NO MED) Hx Hypercholesterolemia: No Hx Pacemaker: No HX Cerebrovascular Accident: No Hx Seizures: No Hx Dementia: No Hx Diabetes: No Hx Gastrointestinal Disorders: Yes (ZANTAC IN THE PAST) Hx Liver Disease: No Hx Genitourinary Disorders: No Hx Sexually Transmitted Disorders: Yes (DENIES) Hx Renal Disease (ESRD): No Hx Thyroid Disease: No Hx Human Immunodeficiency Virus (HIV): Yes (SINCE 1999 AND ON ATRIPLA; neuropathy) Hx Hepatitis C: No Hx Depression: No Hx Suicide Attempt: No (DENIES S/I) Hx Bipolar Disorder: No Hx Schizophrenia: No Other Medical History: no sucidal,no homicidal - Patient Surgical History Past Surgical History: Yes Hx Neurologic Surgery: No Hx Cataract Extraction: No Hx Cardiac Surgery: No Hx Lung Surgery: No Hx Breast Surgery: No Hx Breast Biopsy: No Hx Abdominal Surgery: No Hx Appendectomy: No Hx Cholecystectomy: No Hx Genitourinary Surgery: No Hx Section: No Hx Orthopedic Surgery: No Other Surgical History: bilateral inguinal hernia repair in 03/2014 Anesthesia Reaction: No - PPD History Previous Implant?: Yes Documented Results: Negative w/o proof Implanted On Prior [facility] Admission?: Yes Date: 08/31/14 Results: 0 mm PPD to be Administered?: Yes - Smoking Cessation Smoking history: Current every day smoker Have you smoked in the past 12 months: Yes Aproximately how many cigarettes per day: 8 Cigars Per Day: 0 Hx Chewing Tobacco Use: No Initiated information on smoking cessation: Yes 'Breaking Loose' booklet given: 05/10/18 - Substance & Tx. History Hx Alcohol Use: Yes Hx Substance Use: Yes Substance Use Type: Alcohol, Cocaine Hx Substance Use Treatment: Yes ([facility] 10/24/17 to 10/26/17) - Substances Abused Alcohol Route: Oral Frequency: Daily Amount used: 1 pint of voska Age of first use: 32 Date of Last Use: 05/09/18 Cocaine Route: Inhalation Frequency: 1-2 times per week Amount used: 20$ Age of first use: 32 Date of Last Use: 05/09/18 Family Disease History - Family Disease History Family Disease History: CA: Grandparent (colon ca) Admission Physical Exam [facility] - Vital Signs Vital Signs: Vital Signs - 24 hr 05/10/18 09:27 Temperature 96.1 F L Pulse Rate 92 H Respiratory 18 Rate Blood Pressure 137/78 - Physical General Appearance: Yes: Moderate Distress, Tremorous, Irritable, Sweating, Anxious HEENTM: Yes: Normal ENT Inspection, DARRIUS, Pharynx Normal Respiratory: Yes: Lungs Clear, Normal Breath Sounds, No Respiratory Distress Neck: Yes: Within Normal Limits, Supple, Trachea in good position Breast: Yes: Within Normal Limits Cardiology: Yes: Within Normal Limits, Regular Rhythm, Regular Rate, S1, S2 Abdominal: Yes: Within Normal Limits, Normal Bowel Sounds, Non Tender, Soft, Surgical Scar Genitourinary: Yes: Within Normal Limits Back: Yes: Muscle Spasm Musculoskeletal: Yes: Back pain, Muscle Pain Extremities: Yes: Tremors 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: 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: 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 NML intact, Fully Oriented, Alert, Motor Strength 5/5 Integumentary: Yes: Dry Lymphatic: Yes: Within Normal Limits - Diagnostic (1) Alcohol dependence with uncomplicated withdrawal Current Visit: No Status: Acute (2) Cocaine dependence Current Visit: No Status: Acute Qualifiers: Substance use status: uncomplicated Qualified Code(s): F14.20 - Cocaine dependence, uncomplicated (3) Nicotine dependence Current Visit: No Status: Acute Qualifiers: Nicotine product type: cigarettes Substance use status: in withdrawal Qualified Code(s): F17.213 - Nicotine dependence, cigarettes, with withdrawal (4) Weight decrease Current Visit: No Status: Acute (5) HIV (human immunodeficiency virus infection) Current Visit: No Status: Chronic (6) Peripheral neuropathy Current Visit: No Status: Chronic Qualifiers: Peripheral neuropathy type: polyneuropathy associated with underlying disease Qualified Code(s): G63 - Polyneuropathy in diseases classified elsewhere (7) COPD (chronic obstructive pulmonary disease) Current Visit: Yes Status: Acute (8) Essential hypertension Current Visit: Yes Status: Acute Cleared for Admission [facility] - Detox or Rehab [facility] Level of Care: Medically Managed Detox Regimen/Protocol: Librium S Breath Alcohol Content Breath Alcohol Content: 0.117 Urine Drug Screen - Results Drug Screen Negative: No Urine Drug Screen Results: JW-Cocaine, BZO-Benzodiazepines
[2018-05-10] MEDS ORDERED: P-EPHED 60MG/TRIPROLIDI 2.5MG TABLET PO PRN (09:58)
[2018-05-10] MEDS ORDERED: MENTHOL/PHENOL 1 EACH UD MM PRN (09:58)
[2018-05-10] MEDS ORDERED: IBUPROFEN 400 MG TABLET (FP) PO PRN (09:58)
[2018-05-10] MEDS ORDERED: LOPERAMIDE HCL 2 MG CAPSULE PO PRN (09:58)
[2018-05-10] MEDS ORDERED: ACETAMINOPHEN 325 MG TABLET (FP) PO PRN (09:58)
[2018-05-10] MEDS ORDERED: chlordiazePOXIDE HCL 25 MG CAPSULE PO PRN (09:58)
[2018-05-10] MEDS ORDERED: MAG HYDROX/AL HYDROX/SIMETH 30 ML UNIT-DOSE CUP PO PRN (09:58)
[2018-05-10] MEDS ORDERED: MAGNESIUM CITRATE 300 ML BOTTLE PO PRN (09:58)
[2018-05-10] MEDS ORDERED: MAGNESIUM HYDROX 2400MG/30ML ORAL SUSPENSION 30 ML CUP PO PRN (09:58)
[2018-05-10] MEDS ORDERED: hydrOXYzine PAMOATE 25 MG CAPSULE (FP) PO PRN (09:58)
[2018-05-10] MEDS ORDERED: guaiFENesin/D-METHORPHAN HB 10 ML UNIT-DOSE CUPS PO PRN (09:58)
[2018-05-10] MEDS: PRENATAL VITAMINS W/ FOLIC ACID TABLET (FP) PO SCH (11:44)
[2018-05-10] MEDS: NICOTINE 21 MG/24 HOURS TOPICAL PATCH TD SCH (11:44)
[2018-05-10] MEDS: GABAPENTIN 300 MG CAPSULE (FP) PO SCH ×2 (13:55→22:26)
[2018-05-10] MEDS: chlordiazePOXIDE HCL 25 MG CAPSULE PO SCH ×2 (17:07→22:26)
[2018-05-10] MEDS ORDERED: MELATONIN 5 MG TABLETS PO PRN (22:00)
[2018-05-10] MEDS: EFAVIRENZ 600 MG TABLET PO SCH (22:26)
[2018-05-10] MEDS: THIAMINE HCL 100 MG TABLET (FP) PO SCH (22:26)
[2018-05-10] MEDS: EMTRICITABINE 200MG/TENOFOVIR 300MG PO SCH (22:27)
[2018-05-10 22:50] LABS: URINE APPEARANCE CLEAR; URINE BILIRUBIN NEGATIVE (<2.0 mg/dL); URINE COLOR YELLOW; URINE GLUCOSE (UA) 2+ (NEGATIVE); URINE KETONE NEGATIVE (NEGATIVE); URINE LEUK ESTERASE NEGATIVE (NEGATIVE); URINE NITRITE NEGATIVE (NEGATIVE); URINE PROTEIN NEGATIVE (NEGATIVE); URINE UROBILINOGEN NEGATIVE mg/dL (0.2-1.0)
[2018-05-11] MEDS: GABAPENTIN 300 MG CAPSULE (FP) PO SCH ×3 (05:33→22:17)
[2018-05-11] MEDS: chlordiazePOXIDE HCL 25 MG CAPSULE PO SCH ×4 (05:34→22:17)
--- NOTE | 2018-05-11 09:55 | PN ---
S CIWA - CIWA Score Nausea/Vomitin-Mild Nausea/No Vomiting Muscle Tremors: 3 Anxiety: 2 Agitation: 2 Paroxysmal Sweats: 1-Minimal Palms Moist Orientation: 1-Uncertain about Date Tacttile Disturbances: 1-Very Mild Itch/Numbness Auditory Disturbances: 1-Very Mild Visual Disturbances: 0-None Headache: 1-Very Mild CIWA-Ar Total Score: 13 BHS Progress Note (SOAP) Subjective: tremor sweat gi distress Objective: 05/11/18 09:55 Vital Signs Temperature 98.1 F 05/11/18 09:28 Pulse Rate 97 H 05/11/18 09:28 Respiratory Rate 16 05/11/18 09:28 Blood Pressure 135/91 05/11/18 09:28 O2 Sat by Pulse Oximetry (%) Laboratory Last Values Urine Color Yellow 05/10/18 22:30 Urine Appearance Clear 05/10/18 22:30 Urine pH 7.0 (5.0-8.0) 05/10/18 22:30 Ur Specific [place] 1.010 (1.010-1.035) 05/10/18 22:30 Urine Protein Negative (NEGATIVE) 05/10/18 22:30 Urine Glucose (UA) 2+ (NEGATIVE) H 05/10/18 22:30 Urine Ketones Negative (NEGATIVE) 05/10/18 22:30 Urine Blood Negative (NEGATIVE) 05/10/18 22:30 Urine Nitrite Negative (NEGATIVE) 05/10/18 22:30 Urine Bilirubin Negative (<2.0 mg/dL) 05/10/18 22:30 Urine Urobilinogen Negative mg/dL (0.2-1.0) 05/10/18 22:30 Ur Leukocyte Esterase Negative (NEGATIVE) 05/10/18 22:30 lab noted Assessment: 05/11/18 09:55 withdrawal sx Plan: continue detox
[2018-05-11] MEDS: PRENATAL VITAMINS W/ FOLIC ACID TABLET (FP) PO SCH (10:25)
[2018-05-11] MEDS: NICOTINE 21 MG/24 HOURS TOPICAL PATCH TD SCH (10:26)
[2018-05-11 10:37] LABS: HEMATOCRIT 39.3 % (35.4-49); HEMOGLOBIN 12.8 GM/dL (11.7-16.9); MCH 32.6 pg (25.7-33.7); MCHC 32.6 g/dl (32.0-35.9); MEAN CELL VOLUME 99.8 fl (80-96); MEAN PLT VOLUME 7.7 fl (7.5-11.1); PLATELET COUNT 214 K/MM3 (134-434); RBC 3.94 M/mm3 (4.00-5.60); RDW 14.8 % (11.9-15.9)
[2018-05-11 10:52] LABS: ALK PHOS 91 U/L (45-117); ANION GAP 10 MMOL/L (8-16); BILIRUBIN,TOTAL 0.6 mg/dL (0.2-1); BLOOD UREA NITROGEN 7 mg/dL (7-18); CALCIUM 8.5 mg/dL (8.5-10.1); CHLORIDE 106 mmol/L (98-107); CO2 29 mmol/L (21-32); CREATININE 0.7 mg/dL (0.55-1.3); GLUCOSE,RANDOM 114 mg/dL (74-106); POTASSIUM 4.3 mmol/L (3.5-5.1); SGOT/AST 81 U/L (15-37); SGPT/ALT 74 U/L (13-61); SODIUM 144 mmol/L (136-145); TOT PROT 7.3 g/dl (6.4-8.2)
[2018-05-11 16:43] LABS: URINE APPEARANCE TURBID; URINE BILIRUBIN NEGATIVE (<2.0 mg/dL); URINE COLOR YELLOW; URINE GLUCOSE (UA) NEGATIVE (NEGATIVE); URINE KETONE NEGATIVE (NEGATIVE); URINE LEUK ESTERASE NEGATIVE (NEGATIVE); URINE NITRITE NEGATIVE (NEGATIVE); URINE PROTEIN NEGATIVE (NEGATIVE)
[2018-05-11] MEDS: THIAMINE HCL 100 MG TABLET (FP) PO SCH (22:16)
[2018-05-11] MEDS: EFAVIRENZ 600 MG TABLET PO SCH (22:16)
[2018-05-11] MEDS: EMTRICITABINE 200MG/TENOFOVIR 300MG PO SCH (22:17)
[2018-05-12] MEDS: GABAPENTIN 300 MG CAPSULE (FP) PO SCH ×3 (05:23→22:09)
[2018-05-12] MEDS: chlordiazePOXIDE HCL 25 MG CAPSULE PO SCH ×2 (05:23→10:06)
[2018-05-12] MEDS: NICOTINE 21 MG/24 HOURS TOPICAL PATCH TD SCH (10:05)
[2018-05-12] MEDS: PRENATAL VITAMINS W/ FOLIC ACID TABLET (FP) PO SCH (10:05)
--- NOTE | 2018-05-12 11:20 | PN ---
S CIWA - CIWA Score Nausea/Vomitin-No Nausea/No Vomiting Muscle Tremors: 2 Anxiety: 3 Agitation: 1-Slight > Activity Paroxysmal Sweats: 1-Minimal Palms Moist Orientation: 0-Oriented Tacttile Disturbances: 0-None Auditory Disturbances: 0-None Visual Disturbances: 0-None Headache: 0-None Present CIWA-Ar Total Score: 7 BHS Progress Note (SOAP) Subjective: PATIENT C/O ANXIETY, MILD SHAKES BUT STATES HE FEELS MUCH BETTER THAN HE DID YESTERDAY. Objective: 05/12/18 11:16 Vital Signs Temperature 96.8 F L 05/12/18 09:08 Pulse Rate 107 H 05/12/18 09:08 Respiratory Rate 16 05/12/18 09:08 Blood Pressure 121/83 05/12/18 09:08 O2 Sat by Pulse Oximetry (%) Vital Signs Temperature 96.8 F L 05/12/18 09:08 Pulse Rate 107 H 05/12/18 09:08 Respiratory Rate 16 05/12/18 09:08 Blood Pressure 121/83 05/12/18 09:08 O2 Sat by Pulse Oximetry (%) Laboratory Tests 05/10/18 05/11/18 05/11/18 22:30 05:35 05:35 WBC 3.0 L RBC 3.94 L Hgb 12.8 Hct 39.3 MCV 99.8 H MCH 32.6 MCHC 32.6 RDW 14.8 Plt Count 214 MPV 7.7 Sodium 144 Potassium 4.3 Chloride 106 Carbon Dioxide 29 Anion Gap 10 BUN 7 Creatinine 0.7 Creat Clearance w eGFR > 60 Random Glucose 114 H Calcium 8.5 Total Bilirubin 0.6 AST 81 H ALT 74 H Alkaline Phosphatase 91 Total Protein 7.3 Albumin 4.0 Urine Color Yellow Urine Appearance Clear Urine pH 7.0 Ur Specific [place] 1.010 Urine Protein Negative Urine Glucose (UA) 2+ H Urine Ketones Negative Urine Blood Negative Urine Nitrite Negative Urine Bilirubin Negative Urine Urobilinogen Negative Ur Leukocyte Esterase Negative RPR Titer 05/11/18 05/11/18 05:35 14:50 WBC RBC Hgb Hct MCV MCH MCHC RDW Plt Count MPV Sodium Potassium Chloride Carbon Dioxide Anion Gap BUN Creatinine Creat Clearance w eGFR Random Glucose Calcium Total Bilirubin AST ALT Alkaline Phosphatase Total Protein Albumin Urine Color Yellow Urine Appearance Turbid Urine pH 7.0 Ur Specific [place] 1.016 Urine Protein Negative Urine Glucose (UA) Negative Urine Ketones Negative Urine Blood Negative Urine Nitrite Negative Urine Bilirubin Negative Urine Urobilinogen 2.0 Ur Leukocyte Esterase Negative RPR Titer Nonreactive PE: SKIN WARM AND DRY, MILD MOISTURE TO HANDS ALERT AND ORIENTED X 3 EXT MILD TREMORS FELT AMB AD ASIM PT MILDLY ANXIOUS Assessment: 05/12/18 11:20 WITHDRAWAL SX Plan: CONTINUE DETOX ENCOURAGE ORAL FLUIDS CONTINUE TO MONITOR CLINICALLY
[2018-05-12] MEDS: chlordiazePOXIDE 5 MG CAPSULE PO SCH ×2 (17:25→22:09)
[2018-05-12] MEDS: THIAMINE HCL 100 MG TABLET (FP) PO SCH (22:09)
[2018-05-12] MEDS: EFAVIRENZ 600 MG TABLET PO SCH (22:09)
[2018-05-12] MEDS: EMTRICITABINE 200MG/TENOFOVIR 300MG PO SCH (22:09)
[2018-05-13] MEDS: GABAPENTIN 300 MG CAPSULE (FP) PO SCH ×3 (06:03→22:22)
[2018-05-13] MEDS: chlordiazePOXIDE 5 MG CAPSULE PO SCH ×2 (06:03→10:27)
[2018-05-13] MEDS: NICOTINE 21 MG/24 HOURS TOPICAL PATCH TD SCH (10:27)
[2018-05-13] MEDS: PRENATAL VITAMINS W/ FOLIC ACID TABLET (FP) PO SCH (10:27)
--- NOTE | 2018-05-13 10:32 | PN ---
BHS Progress Note (SOAP) Subjective: mild shakes tired Objective: 05/13/18 10:30 Vital Signs Temperature 96.4 F L 05/13/18 09:23 Pulse Rate 107 H 05/13/18 09:23 Respiratory Rate 18 05/13/18 09:23 Blood Pressure 120/81 05/13/18 09:23 O2 Sat by Pulse Oximetry (%) aaox3 ambulating no acute distress Assessment: 05/13/18 10:31 withdrawal sx Plan: increase fluids continue detox d/c in am
[2018-05-13] MEDS: chlordiazePOXIDE HCL 10 MG CAPSULE PO SCH ×2 (17:20→22:22)
[2018-05-13] MEDS: EFAVIRENZ 600 MG TABLET PO SCH (22:22)
[2018-05-13] MEDS: THIAMINE HCL 100 MG TABLET (FP) PO SCH (22:22)
[2018-05-13] MEDS: EMTRICITABINE 200MG/TENOFOVIR 300MG PO SCH (22:23)
[2018-05-14] MEDS: chlordiazePOXIDE HCL 10 MG CAPSULE PO SCH (05:23)
[2018-05-14] MEDS: GABAPENTIN 300 MG CAPSULE (FP) PO SCH (05:25)
--- NOTE | 2018-05-14 09:09 | DS ---
[facility] Detox Discharge Summary Admission Date: 05/10/18 Discharge Date: 05/14/18 - History Present History: Alcohol Dependence - Physical Exam Results Vital Signs: Vital Signs Temperature 97.7 F 05/14/18 06:00 Pulse Rate 90 05/14/18 06:00 Respiratory Rate 16 05/14/18 06:00 Blood Pressure 132/81 05/14/18 06:00 O2 Sat by Pulse Oximetry (%) - Treatment Hospital Course: Detox Protocol Followed, Detoxed Safely, Responded well, Discharged Condition Good, Rehab Referral Accepted - Medication Discharge Medications: Ambulatory Orders Efavirenz/Emtricitab/Tenofovir [Atripla Tablet -] 1 tab PO DAILY 08/29/14 Gabapentin 300 mg PO TID 10/24/17 - Diagnosis (1) COPD (chronic obstructive pulmonary disease) Current Visit: Yes Status: Acute (2) Essential hypertension Current Visit: Yes Status: Acute (3) Alcohol dependence with uncomplicated withdrawal Current Visit: Yes Status: Chronic (4) Cocaine dependence Current Visit: Yes Status: Chronic Qualifiers: Substance use status: uncomplicated Qualified Code(s): F14.20 - Cocaine dependence, uncomplicated (5) Nicotine dependence Current Visit: Yes Status: Acute Qualifiers: Nicotine product type: cigarettes Substance use status: uncomplicated Qualified Code(s): F17.210 - Nicotine dependence, cigarettes, uncomplicated (6) Weight decrease Current Visit: No Status: Acute (7) Depression Current Visit: No Status: Chronic (8) HIV (human immunodeficiency virus infection) Current Visit: Yes Status: Chronic (9) Peripheral neuropathy Current Visit: No Status: Chronic Qualifiers: Peripheral neuropathy type: polyneuropathy associated with underlying disease Qualified Code(s): G63 - Polyneuropathy in diseases classified elsewhere - AMA Did Patient Leave Against Medical Advice: No (referred to out patient rehab)
[2018-05-14 09:13] VITALS: BP 125/84; PULSE 116; TEMP 96.3
== END 2018-05-14 08:47 | disposition home or self-care (01) | DRG 774 ==
LOC: YASAS 09:02 → Y6N 11:03
PROVIDERS: ADMIT Neuromusculoskeletal Medicine & OMM; ATTEND Neuromusculoskeletal Medicine & OMM
PROC: HZ2ZZZZ Detoxification Services for Substance Abuse Treatment (ICD-10-PCS; principal; 2018-05-10)
DX: F10.230 Alcohol dependence with withdrawal, uncomplicated (principal); F14.20 Cocaine dependence, uncomplicated; F17.210 Nicotine dependence, cigarettes, uncomplicated; F32.9 Major depressive disorder, single episode, unspecified; I10 Essential (primary) hypertension; J43.9 Emphysema, unspecified; G63 Polyneuropathy in diseases classified elsewhere; Z21 Asymptomatic human immunodeficiency virus [HIV] infection status
CPT/HCPCS: 36415; 80053; 81003; 85027; 86593

== ENCOUNTER 2018-06-20 08:49 | Inpatient (IN) | payer OTHER ==
[2018-06-20 09:24] VITALS: BMI 19.2
--- NOTE | 2018-06-20 11:14 | HP ---
CIWA Score Nausea/Vomitin-No Nausea/No Vomiting Muscle Tremors: 2 Anxiety: 0-No Anxiety, at Ease Agitation: 0-Normal Activity Paroxysmal Sweats: No Perspiration Orientation: 0-Oriented Tacttile Disturbances: 0-None Auditory Disturbances: 0-None Visual Disturbances: 0-None Headache: 0-None Present CIWA-Ar Total Score: 2 - Admission Criteria OASAS Guidelines: Admission for Medically Managed Detox: Requires at least one of the followin. CIWA greater than 12 2. Seizures within the past 24 hours 3. Delirium tremens within the past 24 hours 4. Hallucinations within the past 24 hours 5. Acute intervention needed for co occurring medical disorder 6. Acute intervention needed for co occurring psychiatric disorder 7. Severe withdrawal that cannot be handled at a lower level of care (continued vomiting, continued diarrhea, abnormal vital signs) requiring intravenous medication and/or fluids 8. Admission ROS S - HPI Allergies/Adverse Reactions: Allergies Allergy/AdvReac Type Severity Reaction Status Date / Time No Known Allergies Allergy Verified 06/20/18 09:45 History of Present Illness: patient here requesting detox from etoh use , reports 1 pint /day since age 32 , reports tremors if not drinking , starts drinking around 2 pm every day , prior detox April 2018 at this facility . utox + Bzo - pt here from [facility] , has d/c paperwork , pt states was given Librium in ER . bobby 0.006 tobacco 8 cigarettes /day pMHx : hiv + , neuropathy - goes to [facility] , latest visit 3 mo ago pshx : bilateral inguinal hernia meds : atripla, gabapentin psych : denies shx : denies Exam Limitations: No Limitations - Ebola screening Have you traveled outside of the country in the last 21 days: No Have you had contact with anyone from an Ebola affected area: No Have you been sick,other than usual withdrawal symptoms: No Do you have a fever: No - Review of Systems Constitutional: See HPI EENT: reports: Other (glasses , missing teeth) Respiratory: reports: No Symptoms reported Cardiac: reports: No Symptoms Reported GI: reports: No Symptoms Reported : reports: No Symptoms Reported Musculoskeletal: reports: See HPI Integumentary: reports: No Symptoms Reported Neuro: reports: See HPI, Numbness Endocrine: reports: No Symptoms Reported Psychiatric: reports: Orientated x3 Patient History - Patient Medical History Hx Anemia: No Hx Asthma: No Hx Chronic Obstructive Pulmonary Disease (COPD): No Hx Cancer: No Hx Cardiac Disorders: No Hx Congestive Heart Failure: No Hx Hypertension: No Hx Hypercholesterolemia: No Hx Pacemaker: No HX Cerebrovascular Accident: No Hx Seizures: No Hx Dementia: No Hx Diabetes: No Hx Gastrointestinal Disorders: No Hx Liver Disease: No Hx Genitourinary Disorders: No Hx Sexually Transmitted Disorders: No Hx Renal Disease (ESRD): No Hx Thyroid Disease: No Hx Human Immunodeficiency Virus (HIV): Yes (SINCE 1999 AND ON ATRIPLA; neuropathy) Hx Hepatitis C: No Hx Depression: No Hx Suicide Attempt: No Hx Bipolar Disorder: No Hx Schizophrenia: No - Patient Surgical History Past Surgical History: Yes Hx Neurologic Surgery: No Hx Cataract Extraction: No Hx Cardiac Surgery: No Hx Lung Surgery: No Hx Breast Surgery: No Hx Breast Biopsy: No Hx Abdominal Surgery: No Hx Appendectomy: No Hx Cholecystectomy: No Hx Genitourinary Surgery: No Hx Section: No Hx Orthopedic Surgery: No Other Surgical History: bilateral inguinal hernia repair in 03/2014 Anesthesia Reaction: No - PPD History Previous Implant?: Yes Documented Results: Negative w/proof Implanted On Prior [facility] Admission?: Yes Date: 05/12/18 Results: 0 mm - Smoking Cessation Smoking history: Current every day smoker Have you smoked in the past 12 months: Yes Aproximately how many cigarettes per day: 8 Cigars Per Day: 0 Hx Chewing Tobacco Use: No Initiated information on smoking cessation: No - Substances Abused Alcohol-vodka Route: Oral Frequency: Daily Amount used: 1 pt. Age of first use: 32 Date of Last Use: 06/19/18 Family Disease History - Family Disease History Family Disease History: CA: Grandparent (colon ca) Admission Physical Exam BHS - Vital Signs Vital Signs: Vital Signs - 24 hr 06/20/18 09:23 Temperature 98.5 F Pulse Rate 106 H Respiratory 19 Rate Blood Pressure 141/86 - Physical General Appearance: Yes: Disheveled, Mild Distress, Intoxicated HEENTM: Yes: EOMI, Hearing grossly Normal, Normocephalic, Normal Voice Respiratory: Yes: Chest Non-Tender, Lungs Clear, Normal Breath Sounds Neck: Yes: No masses,lesions,Nodules, Trachea in good position Breast: Yes: Breast Exam Deferred Cardiology: Yes: Regular Rhythm, Regular Rate, S1, S2, Tachycardia Abdominal: Yes: Normal Bowel Sounds, Non Tender, Soft Genitourinary: Yes: Within Normal Limits Back: Yes: Normal Inspection Musculoskeletal: Yes: full range of Motion Extremities: Yes: Normal Capillary Refill, Normal Inspection, Non-Tender, Tremors 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: Yes: Within Normal Limits, Fully Oriented Integumentary: Yes: Normal Color, Dry, Warm, Other (left supraorbital excoriation , pt states " I fell a long time ago ") - Diagnostic (1) Alcohol dependence with uncomplicated withdrawal Current Visit: No Status: Acute BHS Breath Alcohol Content Breath Alcohol Content: 0.006 Urine Drug Screen - Results Drug Screen Negative: No Urine Drug Screen Results: BZO-Benzodiazepines
[2018-06-20] MEDS ORDERED: MAGNESIUM HYDROX 2400MG/30ML ORAL SUSPENSION 30 ML CUP PO PRN (11:20)
[2018-06-20] MEDS ORDERED: ACETAMINOPHEN 325 MG TABLET (FP) PO PRN (11:20)
[2018-06-20] MEDS ORDERED: MENTHOL/PHENOL 1 EACH UD MM PRN (11:20)
[2018-06-20] MEDS ORDERED: MAG HYDROX/AL HYDROX/SIMETH 30 ML UNIT-DOSE CUP PO PRN (11:20)
[2018-06-20] MEDS ORDERED: chlordiazePOXIDE HCL 25 MG CAPSULE PO PRN (11:20)
[2018-06-20] MEDS ORDERED: IBUPROFEN 400 MG TABLET (FP) PO PRN (11:20)
[2018-06-20] MEDS ORDERED: MAGNESIUM CITRATE 300 ML BOTTLE PO PRN (11:20)
[2018-06-20] MEDS ORDERED: P-EPHED 60MG/TRIPROLIDI 2.5MG TABLET PO PRN (11:20)
[2018-06-20] MEDS ORDERED: guaiFENesin/D-METHORPHAN HB 10 ML UNIT-DOSE CUPS PO PRN (11:20)
[2018-06-20] MEDS ORDERED: NICOTINE POLACRILEX 2 MG GUM BUC PRN (11:20)
[2018-06-20] MEDS: GABAPENTIN 300 MG CAPSULE (FP) PO SCH ×2 (13:11→22:16)
[2018-06-20] MEDS: chlordiazePOXIDE HCL 25 MG CAPSULE PO SCH ×2 (17:27→22:16)
[2018-06-20] MEDS ORDERED: MELATONIN 5 MG TABLETS PO PRN (22:00)
[2018-06-20] MEDS: THIAMINE HCL 100 MG TABLET (FP) PO SCH (22:15)
[2018-06-21] MEDS: GABAPENTIN 300 MG CAPSULE (FP) PO SCH ×3 (05:25→22:18)
[2018-06-21] MEDS: chlordiazePOXIDE HCL 25 MG CAPSULE PO SCH ×4 (05:25→22:18)
[2018-06-21] MEDS ORDERED: PATIENT'S OWN MEDICATION (NON-FORMULARY) (Efavirenz/Emtricitab/Tenofovir 1 TAB) PO SCH (10:00)
[2018-06-21 10:06] LABS: HEMOGLOBIN 12.9 GM/dL (11.7-16.9); MCH 31.8 pg (25.7-33.7); MCHC 32.1 g/dl (32.0-35.9); PLATELET COUNT 145 K/MM3 (134-434); RBC 4.04 M/mm3 (4.00-5.60); RDW 14.2 % (11.9-15.9); WHITE BLOOD COUNT 3.8 K/mm3 (4.0-10.0)
[2018-06-21] MEDS: PRENATAL VITAMINS W/ FOLIC ACID TABLET (FP) PO SCH (10:13)
[2018-06-21] MEDS: EMTRICITABINE 200MG/TENOFOVIR 300MG PO SCH (10:13)
[2018-06-21] MEDS: EFAVIRENZ 600 MG TABLET PO SCH (10:13)
[2018-06-21 11:08] LABS: ALBUMIN 4.1 g/dl (3.4-5.0); ALK PHOS 121 U/L (45-117); ANION GAP 7 MMOL/L (8-16); BILIRUBIN,TOTAL 0.7 mg/dL (0.2-1); BLOOD UREA NITROGEN 12 mg/dL (7-18); CALCIUM 8.7 mg/dL (8.5-10.1); CHLORIDE 100 mmol/L (98-107); CO2 31 mmol/L (21-32); CREATININE 0.8 mg/dL (0.55-1.3); GLUCOSE,RANDOM 84 mg/dL (74-106); POTASSIUM 4.2 mmol/L (3.5-5.1); SGOT/AST 392 U/L (15-37); SGPT/ALT 147 U/L (13-61); SODIUM 138 mmol/L (136-145); TOT PROT 7.7 g/dl (6.4-8.2)
--- NOTE | 2018-06-21 12:44 | PN ---
S CIWA - CIWA Score Nausea/Vomitin-No Nausea/No Vomiting Muscle Tremors: 4-Moderate,w/Arms Extend Anxiety: 4-Mod. Anxious/Guarded Agitation: 4-Moderately Restless Paroxysmal Sweats: 1-Minimal Palms Moist Orientation: 0-Oriented Tacttile Disturbances: 0-None Auditory Disturbances: 0-None Visual Disturbances: 0-None Headache: 0-None Present CIWA-Ar Total Score: 13 BHS Progress Note (SOAP) Subjective: SLIGHT ANXIETY, DECREASED TREMORS, SWEATS. Objective: 06/21/18 12:43 Vital Signs 06/21/18 06/21/18 06:10 10:25 Temperature 96.4 F L 97.6 F Pulse Rate 86 110 H Respiratory 18 20 Rate Blood Pressure 138/85 115/68 Laboratory Tests 06/21/18 06/21/18 06/21/18 05:50 05:50 05:50 WBC 3.8 L RBC 4.04 Hgb 12.9 Hct 40.0 MCV 99.0 H MCH 31.8 MCHC 32.1 RDW 14.2 Plt Count 145 D MPV 8.0 Sodium 138 Potassium 4.2 Chloride 100 Carbon Dioxide 31 Anion Gap 7 L BUN 12 Creatinine 0.8 Creat Clearance w eGFR > 60 Random Glucose 84 Calcium 8.7 Total Bilirubin 0.7 AST 392 H ALT 147 H Alkaline Phosphatase 121 H Total Protein 7.7 Albumin 4.1 RPR Titer Nonreactive Assessment: 06/21/18 12:44 WITHDRAWAL SX Plan: CONTINUE DETOX
[2018-06-21] MEDS: THIAMINE HCL 100 MG TABLET (FP) PO SCH (22:18)
[2018-06-22] MEDS: chlordiazePOXIDE HCL 25 MG CAPSULE PO SCH ×2 (05:23→10:23)
[2018-06-22] MEDS: GABAPENTIN 300 MG CAPSULE (FP) PO SCH ×3 (05:23→22:14)
[2018-06-22] MEDS: PRENATAL VITAMINS W/ FOLIC ACID TABLET (FP) PO SCH (10:23)
[2018-06-22] MEDS: EMTRICITABINE 200MG/TENOFOVIR 300MG PO SCH (10:23)
[2018-06-22] MEDS: EFAVIRENZ 600 MG TABLET PO SCH (10:24)
--- NOTE | 2018-06-22 14:40 | PN ---
S CIWA - CIWA Score Nausea/Vomitin-Mild Nausea/No Vomiting Muscle Tremors: 4-Moderate,w/Arms Extend Anxiety: 4-Mod. Anxious/Guarded Agitation: 4-Moderately Restless Paroxysmal Sweats: 3 Orientation: 0-Oriented Tacttile Disturbances: 0-None Auditory Disturbances: 0-None Visual Disturbances: 0-None Headache: 0-None Present CIWA-Ar Total Score: 16 BHS Progress Note (SOAP) Subjective: Patient denies any withdrawal symptoms. Patient is anxious and restless Objective: 06/22/18 14:35 Last Vital Signs Temp Pulse Resp BP Pulse Ox 98.4 F 120 H 16 95/69 06/22/18 11:09 06/22/18 11:09 06/22/18 11:09 06/22/18 11:09 Hypotension noted: b/p 95/; tachycardic at 120 bpm Laboratory Tests 06/21/18 06/21/18 06/21/18 05:50 05:50 05:50 WBC 3.8 L RBC 4.04 Hgb 12.9 Hct 40.0 MCV 99.0 H MCH 31.8 MCHC 32.1 RDW 14.2 Plt Count 145 D MPV 8.0 Sodium 138 Potassium 4.2 Chloride 100 Carbon Dioxide 31 Anion Gap 7 L BUN 12 Creatinine 0.8 Creat Clearance w eGFR > 60 Random Glucose 84 Calcium 8.7 Total Bilirubin 0.7 AST 392 H ALT 147 H Alkaline Phosphatase 121 H Total Protein 7.7 Albumin 4.1 RPR Titer Nonreactive Labs reviewed: elevated LFTs (AST/ALT) Assessment: 06/22/18 14:37 Withdrawal symptoms Noted with hypotension and elevated LFTs Plan: Continue detox Hypotension: asymptomatic, encouraged PO water intake Elevated LFTs: most likely r/t alcohol dependence, repeat AST and ALT
[2018-06-22] MEDS: chlordiazePOXIDE 5 MG CAPSULE PO SCH ×2 (17:23→22:14)
[2018-06-22] MEDS: THIAMINE HCL 100 MG TABLET (FP) PO SCH (22:14)
[2018-06-23] MEDS: GABAPENTIN 300 MG CAPSULE (FP) PO SCH ×3 (05:18→22:24)
[2018-06-23] MEDS: chlordiazePOXIDE 5 MG CAPSULE PO SCH ×2 (05:18→10:19)
[2018-06-23] MEDS: PRENATAL VITAMINS W/ FOLIC ACID TABLET (FP) PO SCH (10:18)
[2018-06-23] MEDS: EMTRICITABINE 200MG/TENOFOVIR 300MG PO SCH (10:18)
[2018-06-23] MEDS: EFAVIRENZ 600 MG TABLET PO SCH (10:19)
[2018-06-23 10:24] LABS: SGOT/AST 261 U/L (15-37); SGPT/ALT 155 U/L (13-61)
--- NOTE | 2018-06-23 12:56 | PN ---
[facility] Progress Note Note: PATIENT CONTINUES WITH DETOX REGIMEN. STATES HE FEELS BETTER SINCE ADMISSION. C/ O MILD NIGHT SWEATS. Vital Signs Temperature 96.3 F L 06/23/18 09:28 Pulse Rate 109 H 06/23/18 09:28 Respiratory Rate 20 06/23/18 09:28 Blood Pressure 126/88 06/23/18 09:28 O2 Sat by Pulse Oximetry (%) Vital Signs Temperature 96.3 F L 06/23/18 09:28 Pulse Rate 109 H 06/23/18 09:28 Respiratory Rate 20 06/23/18 09:28 Blood Pressure 126/88 06/23/18 09:28 O2 Sat by Pulse Oximetry (%) Laboratory Tests 06/21/18 06/21/18 06/21/18 05:50 05:50 05:50 WBC 3.8 L RBC 4.04 Hgb 12.9 Hct 40.0 MCV 99.0 H MCH 31.8 MCHC 32.1 RDW 14.2 Plt Count 145 D MPV 8.0 Sodium 138 Potassium 4.2 Chloride 100 Carbon Dioxide 31 Anion Gap 7 L BUN 12 Creatinine 0.8 Creat Clearance w eGFR > 60 Random Glucose 84 Calcium 8.7 Total Bilirubin 0.7 AST 392 H ALT 147 H Alkaline Phosphatase 121 H Total Protein 7.7 Albumin 4.1 RPR Titer Nonreactive 06/23/18 07:00 WBC RBC Hgb Hct MCV MCH MCHC RDW Plt Count MPV Sodium Potassium Chloride Carbon Dioxide Anion Gap BUN Creatinine Creat Clearance w eGFR Random Glucose Calcium Total Bilirubin AST 261 H ALT 155 H Alkaline Phosphatase Total Protein Albumin RPR Titer PE: ALERT AND ORIENTED X 3 SKIN WARM AND DRY EXT NO TREMORS, FULL ROM AMB AD ASIM A/P: WITHDRAWAL SX ELEVATED LFTS-IMPROVING CONTINUE DETOX ENCOURAGE ORAL FLUIDS FOR D/C IN AM AND WILL ATTEND OUTPATIENT AT [facility]. RECOMMENED TO FOLLOW UP WITH PCP WITHIN 72 HOURS OF D/C CONTINUE TO MONITOR CLINICALLY
[2018-06-23] MEDS: chlordiazePOXIDE HCL 10 MG CAPSULE PO SCH ×2 (17:36→22:24)
[2018-06-23] MEDS: THIAMINE HCL 100 MG TABLET (FP) PO SCH (22:24)
[2018-06-24] MEDS: chlordiazePOXIDE HCL 10 MG CAPSULE PO SCH (05:30)
[2018-06-24] MEDS: GABAPENTIN 300 MG CAPSULE (FP) PO SCH (05:57)
[2018-06-24 06:21] VITALS: BP 125/81; PULSE 88; TEMP 96.3
--- NOTE | 2018-06-24 10:56 | DS ---
[facility] Detox Discharge Summary Admission Date: 06/20/18 Discharge Date: 06/24/18 - History Present History: Alcohol Dependence Additional Comments: 58 years old male admitted on 06/20/18 for alcohol withdrawal stabilizatin completed detox regimen tolerated well alert no acute distress aftercare [facility] services - Physical Exam Results Vital Signs: Vital Signs Temperature 96.3 F L 06/24/18 06:20 Pulse Rate 88 06/24/18 06:20 Respiratory Rate 18 06/24/18 06:20 Blood Pressure 125/81 06/24/18 06:20 O2 Sat by Pulse Oximetry (%) Pertinent Admission Physical Exam Findings: alcohol withdrawal sx Vital Signs Temperature 96.3 F L 06/24/18 06:20 Pulse Rate 88 06/24/18 06:20 Respiratory Rate 18 06/24/18 06:20 Blood Pressure 125/81 06/24/18 06:20 O2 Sat by Pulse Oximetry (%) Laboratory Last Values WBC 3.8 K/mm3 (4.0-10.0) L 06/21/18 05:50 RBC 4.04 M/mm3 (4.00-5.60) 06/21/18 05:50 Hgb 12.9 GM/dL (11.7-16.9) 06/21/18 05:50 Hct 40.0 % (35.4-49) 06/21/18 05:50 MCV 99.0 fl (80-96) H 06/21/18 05:50 MCH 31.8 pg (25.7-33.7) 06/21/18 05:50 MCHC 32.1 g/dl (32.0-35.9) 06/21/18 05:50 RDW 14.2 % (11.9-15.9) 06/21/18 05:50 Plt Count 145 K/MM3 (134-434) D 06/21/18 05:50 MPV 8.0 fl (7.5-11.1) 06/21/18 05:50 Sodium 138 mmol/L (136-145) 06/21/18 05:50 Potassium 4.2 mmol/L (3.5-5.1) 06/21/18 05:50 Chloride 100 mmol/L (98-107) 06/21/18 05:50 Carbon Dioxide 31 mmol/L (21-32) 06/21/18 05:50 Anion Gap 7 MMOL/L (8-16) L 06/21/18 05:50 BUN 12 mg/dL (7-18) 06/21/18 05:50 Creatinine 0.8 mg/dL (0.55-1.3) 06/21/18 05:50 Creat Clearance w eGFR > 60 (>60) 06/21/18 05:50 Random Glucose 84 mg/dL (74-106) 06/21/18 05:50 Calcium 8.7 mg/dL (8.5-10.1) 06/21/18 05:50 Total Bilirubin 0.7 mg/dL (0.2-1) 06/21/18 05:50 AST 261 U/L (15-37) H 06/23/18 07:00 ALT 155 U/L (13-61) H 06/23/18 07:00 Alkaline Phosphatase 121 U/L (45-117) H 06/21/18 05:50 Total Protein 7.7 g/dl (6.4-8.2) 06/21/18 05:50 Albumin 4.1 g/dl (3.4-5.0) 06/21/18 05:50 RPR Titer Nonreactive (NONREACTIVE) 06/21/18 05:50 lab noted patient agrees to follow up liver enzyme elevation with infectious disease specialist - Treatment Hospital Course: Detox Protocol Followed, Detoxed Safely, Responded well, Discharged Condition Good, Rehab Referral Accepted Patient has Accepted a Rehab Referral to: [facility] - Medication Discharge Medications: Ambulatory Orders Efavirenz/Emtricitab/Tenofovir [Atripla Tablet -] 1 tab PO DAILY 08/29/14 Gabapentin 300 mg PO TID 10/24/17 - Diagnosis (1) HIV (human immunodeficiency virus infection) Status: Chronic (2) Alcohol dependence with uncomplicated withdrawal Status: Acute (3) Nicotine dependence Status: Acute Qualifiers: Nicotine product type: cigarettes Substance use status: in withdrawal Qualified Code(s): F17.213 - Nicotine dependence, cigarettes, with withdrawal (4) COPD (chronic obstructive pulmonary disease) Status: Chronic Qualifiers: COPD type: chronic bronchitis Chronic bronchitis type: unspecified Qualified Code(s): J42 - Unspecified chronic bronchitis (5) Essential hypertension Status: Chronic (6) Elevated LFTs Status: Chronic - AMA Did Patient Leave Against Medical Advice: No
== END 2018-06-24 09:15 | disposition home or self-care (01) | DRG 774 ==
LOC: YASAS 08:49 → Y3N 11:50
PROC: HZ2ZZZZ Detoxification Services for Substance Abuse Treatment (ICD-10-PCS; principal; 2018-06-20)
DX: F10.230 Alcohol dependence with withdrawal, uncomplicated (principal); F14.20 Cocaine dependence, uncomplicated; F17.213 Nicotine dependence, cigarettes, with withdrawal; Z21 Asymptomatic human immunodeficiency virus [HIV] infection status; I10 Essential (primary) hypertension; J42 Unspecified chronic bronchitis; R94.5 Abnormal results of liver function studies; G63 Polyneuropathy in diseases classified elsewhere; I95.9 Hypotension, unspecified; R63.4 Abnormal weight loss; Z68.1 Body mass index [BMI] 19.9 or less, adult
CPT/HCPCS: 36415; 80053; 84450; 84460; 85027; 86593

== ENCOUNTER 2018-08-09 20:42 | Inpatient (IN) | payer OTHER ==
[2018-08-09 21:03] VITALS: BMI 20.3
[2018-08-09] MEDS ORDERED: MELATONIN 5 MG TABLETS PO PRN (22:00)
--- NOTE | 2018-08-09 22:10 | HP ---
CIWA Score Nausea/Vomitin-Mild Nausea/No Vomiting Muscle Tremors: 3 Anxiety: 3 Agitation: 3 Paroxysmal Sweats: 3 Orientation: 0-Oriented Tacttile Disturbances: 0-None Auditory Disturbances: 0-None Visual Disturbances: 0-None Headache: 2-Mild CIWA-Ar Total Score: 15 - Admission Criteria OASAS Guidelines: Admission for Medically Managed Detox: Requires at least one of the followin. CIWA greater than 12 2. Seizures within the past 24 hours 3. Delirium tremens within the past 24 hours 4. Hallucinations within the past 24 hours 5. Acute intervention needed for co occurring medical disorder 6. Acute intervention needed for co occurring psychiatric disorder 7. Severe withdrawal that cannot be handled at a lower level of care (continued vomiting, continued diarrhea, abnormal vital signs) requiring intravenous medication and/or fluids 8. Admission ROS [facility] Chief Complaint: Alcohol withdrawal symptoms Allergies/Adverse Reactions: Allergies Allergy/AdvReac Type Severity Reaction Status Date / Time No Known Allergies Allergy Verified 08/09/18 21:40 History of Present Illness: 58 years old male with a long history of alcohol dependence is seeking admission to detox. Patient was in detox 06/20/2018 - 06/24/2018 and [id number] years of sobriety. He has medical history of HIV +, COPD, Hypertension, Depression, and Peripheral neuropathy. He denies suicide attempt and suicidal ideation at this time. Exam Limitations: No Limitations - Ebola screening Have you traveled outside of the country in the last 21 days: No Have you had contact with anyone from an Ebola affected area: No Have you been sick,other than usual withdrawal symptoms: No - Review of Systems Constitutional: Chills, Malaise, Changes in sleep EENT: reports: Nose Congestion Respiratory: reports: No Symptoms reported Cardiac: reports: No Symptoms Reported GI: reports: Poor Appetite, Poor Fluid Intake, Abdominal cramping : reports: No Symptoms Reported Musculoskeletal: reports: No Symptoms Reported, Muscle Pain Integumentary: reports: Dryness, Flushing Neuro: reports: Tingling, Tremors Endocrine: reports: No Symptoms Reported Hematology: reports: No Symptoms Reported Psychiatric: reports: Mood/Affect Appropiate, Orientated x3 Other Systems: Reviewed and Negative Patient History - Patient Medical History Hx Anemia: No Hx Asthma: No Hx Chronic Obstructive Pulmonary Disease (COPD): No Hx Cancer: No Hx Cardiac Disorders: No Hx Congestive Heart Failure: No Hx Hypertension: No Hx Hypercholesterolemia: No Hx Pacemaker: No HX Cerebrovascular Accident: No Hx Seizures: No Hx Dementia: No Hx Diabetes: No Hx Gastrointestinal Disorders: No Hx Liver Disease: No Hx Genitourinary Disorders: No Hx Sexually Transmitted Disorders: No Hx Renal Disease (ESRD): No Hx Thyroid Disease: No Hx Human Immunodeficiency Virus (HIV): Yes (SINCE 1999 AND ON ATRIPLA; neuropathy) Hx Hepatitis C: No Hx Depression: No Hx Suicide Attempt: No Hx Bipolar Disorder: No Hx Schizophrenia: No - Patient Surgical History Past Surgical History: Yes Hx Neurologic Surgery: No Hx Cataract Extraction: No Hx Cardiac Surgery: No Hx Lung Surgery: No Hx Breast Surgery: No Hx Breast Biopsy: No Hx Abdominal Surgery: No Hx Appendectomy: No Hx Cholecystectomy: No Hx Genitourinary Surgery: No Hx Section: No Hx Orthopedic Surgery: No Other Surgical History: bilateral inguinal hernia repair in 03/2014 Anesthesia Reaction: No - PPD History Date: 05/12/18 Results: 0 mm PPD to be Administered?: No - Reproductive History Patient is a Female of Child Bearing Age (11 -55 yrs old): No (Male) - Smoking Cessation Smoking history: Current every day smoker Have you smoked in the past 12 months: Yes Aproximately how many cigarettes per day: 8 Cigars Per Day: 0 Hx Chewing Tobacco Use: No Initiated information on smoking cessation: Yes 'Breaking Loose' booklet given: 08/09/18 - Substance & Tx. History Hx Alcohol Use: Yes Hx Substance Use: No Substance Use Type: Alcohol Hx Substance Use Treatment: Yes ([facility]) - Substances Abused Alcohol Route: Oral Frequency: Daily Amount used: VODKA - 1 PINT Age of first use: 32 Date of Last Use: 08/08/18 Family Disease History - Family Disease History Family Disease History: CA: Grandparent (colon ca) Admission Physical Exam BHS - Vital Signs Vital Signs: Vital Signs - 24 hr 08/09/18 21:02 Temperature 99.1 F Pulse Rate 123 H Respiratory 18 Rate Blood Pressure 139/80 - Physical General Appearance: Yes: Moderate Distress, Tremorous, Irritable HEENTM: Yes: Within Normal Limits Respiratory: Yes: Normal Breath Sounds, No Respiratory Distress Neck: Yes: Supple Breast: Yes: Breast Exam Deferred Cardiology: Yes: Tachycardia Abdominal: Yes: Normal Bowel Sounds Genitourinary: Yes: Within Normal Limits Back: Yes: Normal Inspection Musculoskeletal: Yes: Joint Stiffness, Muscle Pain Extremities: Yes: Tremors 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: Yes: java software II-XII NML intact, Alert, Normal Mood/Affect Integumentary: Yes: Warm Lymphatic: Yes: Within Normal Limits - Diagnostic (1) Alcohol dependence with uncomplicated withdrawal Current Visit: Yes Status: Chronic (2) Nicotine dependence Current Visit: Yes Status: Chronic Qualifiers: Nicotine product type: cigarettes Substance use status: uncomplicated Qualified Code(s): F17.210 - Nicotine dependence, cigarettes, uncomplicated (3) COPD (chronic obstructive pulmonary disease) Current Visit: Yes Status: Chronic Qualifiers: COPD type: chronic bronchitis Chronic bronchitis type: unspecified Qualified Code(s): J42 - Unspecified chronic bronchitis (4) Depression Current Visit: Yes Status: Chronic Qualifiers: Depression Type: unspecified Qualified Code(s): F32.9 - Major depressive disorder, single episode, unspecified (5) Essential hypertension Current Visit: Yes Status: Chronic (6) Peripheral neuropathy Current Visit: Yes Status: Chronic Qualifiers: Peripheral neuropathy type: polyneuropathy associated with underlying disease Qualified Code(s): G63 - Polyneuropathy in diseases classified elsewhere Cleared for Admission [facility] - Detox or Rehab [facility] Level of Care: Medically Managed Detox Regimen/Protocol: Librium [facility] Breath Alcohol Content Breath Alcohol Content: 0.091 Urine Drug Screen - Results Drug Screen Negative: No Urine Drug Screen Results: BZO-Benzodiazepines Inpatient Rehab Admission - Rehab Decision to Admit Inpatient rehab admission?: No
[2018-08-09] MEDS ORDERED: P-EPHED 60MG/TRIPROLIDI 2.5MG TABLET PO PRN (22:17)
[2018-08-09] MEDS ORDERED: ACETAMINOPHEN 325 MG TABLET (FP) PO PRN (22:17)
[2018-08-09] MEDS ORDERED: guaiFENesin/D-METHORPHAN HB 10 ML UNIT-DOSE CUPS PO PRN (22:17)
[2018-08-09] MEDS ORDERED: MAGNESIUM CITRATE 300 ML BOTTLE PO PRN (22:17)
[2018-08-09] MEDS ORDERED: IBUPROFEN 400 MG TABLET (FP) PO PRN (22:17)
[2018-08-09] MEDS ORDERED: NICOTINE POLACRILEX 2 MG GUM BC PRN (22:17)
[2018-08-09] MEDS ORDERED: MAG HYDROX/AL HYDROX/SIMETH 30 ML UNIT-DOSE CUP PO PRN (22:17)
[2018-08-09] MEDS ORDERED: chlordiazePOXIDE HCL 25 MG CAPSULE PO PRN (22:17)
[2018-08-09] MEDS ORDERED: LOPERAMIDE HCL 2 MG CAPSULE PO PRN (22:17)
[2018-08-09] MEDS ORDERED: MAGNESIUM HYDROX 2400MG/30ML ORAL SUSPENSION 30 ML CUP PO PRN (22:17)
[2018-08-09] MEDS ORDERED: MENTHOL/PHENOL 1 EACH UD MM PRN (22:17)
[2018-08-09] MEDS: chlordiazePOXIDE HCL 25 MG CAPSULE PO SCH (23:04)
[2018-08-10] MEDS: chlordiazePOXIDE HCL 25 MG CAPSULE PO SCH ×4 (05:43→22:37)
[2018-08-10] MEDS: NICOTINE 14 MG/24 HOURS TOPICAL PATCH TD SCH (10:18)
[2018-08-10] MEDS: PRENATAL VITAMINS W/ FOLIC ACID TABLET (FP) PO SCH (10:18)
[2018-08-10 10:46] LABS: ALK PHOS 152 U/L (45-117); ANION GAP 5 MMOL/L (8-16); BILIRUBIN,TOTAL 0.7 mg/dL (0.2-1); BLOOD UREA NITROGEN 8 mg/dL (7-18); CALCIUM 8.4 mg/dL (8.5-10.1); CHLORIDE 99 mmol/L (98-107); CO2 30 mmol/L (21-32); CREATININE 0.6 mg/dL (0.55-1.3); GLUCOSE,RANDOM 88 mg/dL (74-106); POTASSIUM 3.9 mmol/L (3.5-5.1); SGOT/AST 199 U/L (15-37); SGPT/ALT 156 U/L (13-61); SODIUM 134 mmol/L (136-145); TOT PROT 6.9 g/dl (6.4-8.2)
[2018-08-10 10:51] LABS: HEMOGLOBIN 11.7 GM/dL (11.7-16.9); MCH 33.1 pg (25.7-33.7); MCHC 34.6 g/dl (32.0-35.9); MEAN CELL VOLUME 95.7 fl (80-96); MEAN PLT VOLUME 6.8 fl (7.5-11.1); PLATELET COUNT 275 K/MM3 (134-434); RBC 3.55 M/mm3 (4.00-5.60); RDW 14.9 % (11.9-15.9); WHITE BLOOD COUNT 6.5 K/mm3 (4.0-10.0)
[2018-08-10] MEDS ORDERED: cloNIDine HCL 0.1 MG TABLET PO PRN (18:05)
--- NOTE | 2018-08-10 18:07 | PN ---
S CIWA - CIWA Score Nausea/Vomitin Muscle Tremors: 4-Moderate,w/Arms Extend Anxiety: 4-Mod. Anxious/Guarded Agitation: 3 Paroxysmal Sweats: 3 Orientation: 0-Oriented Tacttile Disturbances: 0-None Auditory Disturbances: 0-None Visual Disturbances: 0-None Headache: 1-Very Mild CIWA-Ar Total Score: 17 BHS Progress Note (SOAP) Subjective: Interrupted sleep Objective: 08/10/18 18:03 Last Vital Signs Temp Pulse Resp BP Pulse Ox 97.5 F L 93 H 16 149/85 08/10/18 17:46 08/10/18 17:46 08/10/18 17:46 08/10/18 17:46 Elevated b/p noted Laboratory Tests 08/10/18 08/10/18 08/10/18 07:50 07:50 07:50 WBC 6.5 RBC 3.55 L Hgb 11.7 Hct 34.0 L MCV 95.7 MCH 33.1 MCHC 34.6 RDW 14.9 Plt Count 275 D MPV 6.8 L D Sodium 134 L Potassium 3.9 Chloride 99 Carbon Dioxide 30 Anion Gap 5 L BUN 8 Creatinine 0.6 Creat Clearance w eGFR > 60 Random Glucose 88 Calcium 8.4 L Total Bilirubin 0.7 AST 199 H ALT 156 H Alkaline Phosphatase 152 H Total Protein 6.9 Albumin 3.0 L RPR Titer Nonreactive Labs reviewed: AST 199, ALT 156 Assessment: 08/10/18 18:04 Withdrawal symptoms Noted with elevated b/p and elevated LFTs Plan: Continue detox Elevated b/p: clonidine 0.1mg PO q8hr prn, low sodium diet Elevated LFTs: repeat AST/ALT
[2018-08-10] MEDS: THIAMINE HCL 100 MG TABLET (FP) PO SCH (22:37)
[2018-08-11] MEDS: chlordiazePOXIDE HCL 25 MG CAPSULE PO SCH ×3 (05:47→17:29)
[2018-08-11 10:32] LABS: SGOT/AST 139 U/L (15-37); SGPT/ALT 127 U/L (13-61)
[2018-08-11] MEDS: PRENATAL VITAMINS W/ FOLIC ACID TABLET (FP) PO SCH (10:45)
[2018-08-11] MEDS: NICOTINE 14 MG/24 HOURS TOPICAL PATCH TD SCH (10:45)
--- NOTE | 2018-08-11 11:21 | PN ---
[facility] CIWA - CIWA Score Nausea/Vomitin-No Nausea/No Vomiting Muscle Tremors: 3 Anxiety: 2 Agitation: 3 Paroxysmal Sweats: 3 Orientation: 0-Oriented Tacttile Disturbances: 0-None Auditory Disturbances: 0-None Visual Disturbances: 0-None Headache: 0-None Present CIWA-Ar Total Score: 11 S Progress Note (SOAP) Subjective: sweats mild shakes interrupted sleep agitation Objective: 08/11/18 11:20 Vital Signs Temperature 97.2 F L 08/11/18 09:21 Pulse Rate 102 H 08/11/18 09:21 Respiratory Rate 16 08/11/18 09:21 Blood Pressure 135/81 08/11/18 09:21 O2 Sat by Pulse Oximetry (%) Laboratory Tests 08/10/18 08/10/18 08/10/18 07:50 07:50 07:50 WBC 6.5 RBC 3.55 L Hgb 11.7 Hct 34.0 L MCV 95.7 MCH 33.1 MCHC 34.6 RDW 14.9 Plt Count 275 D MPV 6.8 L D Sodium 134 L Potassium 3.9 Chloride 99 Carbon Dioxide 30 Anion Gap 5 L BUN 8 Creatinine 0.6 Creat Clearance w eGFR > 60 Random Glucose 88 Calcium 8.4 L Total Bilirubin 0.7 AST 199 H ALT 156 H Alkaline Phosphatase 152 H Total Protein 6.9 Albumin 3.0 L RPR Titer Nonreactive 08/11/18 07:40 WBC RBC Hgb Hct MCV MCH MCHC RDW Plt Count MPV Sodium Potassium Chloride Carbon Dioxide Anion Gap BUN Creatinine Creat Clearance w eGFR Random Glucose Calcium Total Bilirubin AST 139 H ALT 127 H Alkaline Phosphatase Total Protein Albumin RPR Titer liver enzymes improving aaox3 ambulating no acute distress Assessment: 08/11/18 11:21 withdrawal sx Plan: continue detox increase fluids
[2018-08-11] MEDS: THIAMINE HCL 100 MG TABLET (FP) PO SCH (22:27)
[2018-08-11] MEDS: chlordiazePOXIDE 5 MG CAPSULE PO SCH (22:28)
[2018-08-12] MEDS: chlordiazePOXIDE 5 MG CAPSULE PO SCH (05:50)
[2018-08-12 07:33] VITALS: BP 127/85; PULSE 81; TEMP 98.1
--- NOTE | 2018-08-12 08:48 | PN ---
[facility] Progress Note Note: I need to get out of here. My family is picking me up to take me to out patient. Pt signed out AMA.
--- NOTE | 2018-08-12 08:50 | DS ---
[facility] Detox Discharge Summary Admission Date: 08/09/18 - History Present History: Alcohol Dependence, Cocaine Dependence - Physical Exam Results Vital Signs: Vital Signs Temperature 98.1 F 08/12/18 07:32 Pulse Rate 81 08/12/18 07:32 Respiratory Rate 18 08/12/18 07:32 Blood Pressure 127/85 08/12/18 07:32 O2 Sat by Pulse Oximetry (%) - Medication Discharge Medications: Ambulatory Orders Efavirenz/Emtricitab/Tenofovir [Atripla Tablet -] 1 tab PO DAILY 08/29/14 Gabapentin 300 mg PO TID 10/24/17 - Diagnosis (1) Alcohol dependence with uncomplicated withdrawal Current Visit: Yes Status: Chronic (2) COPD (chronic obstructive pulmonary disease) Current Visit: Yes Status: Chronic Qualifiers: COPD type: chronic bronchitis Chronic bronchitis type: unspecified Qualified Code(s): J42 - Unspecified chronic bronchitis (3) Depression Current Visit: Yes Status: Chronic Qualifiers: Depression Type: unspecified Qualified Code(s): F32.9 - Major depressive disorder, single episode, unspecified (4) Essential hypertension Current Visit: Yes Status: Chronic (5) Nicotine dependence Current Visit: Yes Status: Chronic Qualifiers: Nicotine product type: cigarettes Substance use status: uncomplicated Qualified Code(s): F17.210 - Nicotine dependence, cigarettes, uncomplicated (6) Peripheral neuropathy Current Visit: Yes Status: Chronic Qualifiers: Peripheral neuropathy type: polyneuropathy associated with underlying disease Qualified Code(s): G63 - Polyneuropathy in diseases classified elsewhere (7) Hypotension Current Visit: No Status: Acute (8) Weight decrease Current Visit: No Status: Acute (9) Cocaine dependence Current Visit: Yes Status: Chronic Qualifiers: Substance use status: uncomplicated Qualified Code(s): F14.20 - Cocaine dependence, uncomplicated (10) Elevated LFTs Current Visit: No Status: Chronic (11) HIV (human immunodeficiency virus infection) Current Visit: Yes Status: Chronic Qualifiers: HIV symptom status: unspecified Qualified Code(s): B20 - Human immunodeficiency virus [HIV] disease - AMA Did Patient Leave Against Medical Advice: Yes (going home; going outpatient)
[2018-08-12] MEDS ORDERED: chlordiazePOXIDE HCL 10 MG CAPSULE PO SCH (23:00)
== END 2018-08-12 09:18 | disposition left against medical advice (07) | DRG 770 ==
LOC: YASAS 20:42 → Y6N 21:36
PROVIDERS: ADMIT Surgery; ATTEND Surgery
PROC: HZ2ZZZZ Detoxification Services for Substance Abuse Treatment (ICD-10-PCS; principal; 2018-08-09)
DX: F10.230 Alcohol dependence with withdrawal, uncomplicated (principal); F14.20 Cocaine dependence, uncomplicated; F17.210 Nicotine dependence, cigarettes, uncomplicated; F32.9 Major depressive disorder, single episode, unspecified; G62.9 Polyneuropathy, unspecified; I95.9 Hypotension, unspecified; R74.8 Abnormal levels of other serum enzymes; Z21 Asymptomatic human immunodeficiency virus [HIV] infection status; I10 Essential (primary) hypertension; J42 Unspecified chronic bronchitis; R63.4 Abnormal weight loss; Z68.20 Body mass index [BMI] 20.0-20.9, adult
CPT/HCPCS: 36415; 80053; 84450; 84460; 85027; 86593; J0735

== ENCOUNTER 2018-09-21 09:01 | Inpatient (IN) | payer OTHER ==
[2018-09-21 10:14] VITALS: BMI 17.7
--- NOTE | 2018-09-21 10:45 | HP ---
CIWA Score Nausea/Vomitin-No Nausea/No Vomiting Muscle Tremors: 4-Moderate,w/Arms Extend Anxiety: 2 Agitation: 0-Normal Activity Paroxysmal Sweats: 2 Orientation: 1-Uncertain about Date Tacttile Disturbances: 3-Moderate Itch/Numb/Burn Auditory Disturbances: 0-None Visual Disturbances: 0-None Headache: 0-None Present CIWA-Ar Total Score: 12 - Admission Criteria OASAS Guidelines: Admission for Medically Managed Detox: Requires at least one of the followin. CIWA greater than 12 2. Seizures within the past 24 hours 3. Delirium tremens within the past 24 hours 4. Hallucinations within the past 24 hours 5. Acute intervention needed for co occurring medical disorder 6. Acute intervention needed for co occurring psychiatric disorder 7. Severe withdrawal that cannot be handled at a lower level of care (continued vomiting, continued diarrhea, abnormal vital signs) requiring intravenous medication and/or fluids 8. Patient presents the following: CIWA greater than 12, Acute intervention needed for co-occurring med or psych disorder Admission Criteria Met: Admission criteria met Admission ROS [facility] Chief Complaint: alcohol withdrawal sx Allergies/Adverse Reactions: Allergies Allergy/AdvReac Type Severity Reaction Status Date / Time No Known Allergies Allergy Verified 09/21/18 10:08 History of Present Illness: 58 years old male with a long history of alcohol and nicotine dependence is here seeking alcohol detox, self referred, reports relapse since his last detox [facility] 08/09/18 -08/12/18. utox positive for jaja , bzo. REMA = 0.040. Reports yesterday did some cocaine, but jaja not drug of choice. Reports drinks one pint of liquor per day, reports has increased drinking in the past four months. Patient reports he fell two weeks ago while intoxicated, reports he was evaluated at [facility] 09/21/[address] of Spine and head performed ( see hospital discharge summary). Longest period of sobriety 10 years. Reports medical hx of HIV +, COPD, Hypertension, and Peripheral neuropathy. He denies suicide attempt and suicidal ideation at this time. Exam Limitations: No Limitations - Ebola screening Have you traveled outside of the country in the last 21 days: No (N) Have you had contact with anyone from an Ebola affected area: No Do you have a fever: No - Review of Systems Constitutional: Weakness, Unintentional Wgt. Loss (30lb in past "couple months") EENT: reports: No Symptoms Reported Respiratory: reports: Cough (chronic, attributes to smoking) Cardiac: reports: No Symptoms Reported GI: reports: Poor Appetite, Poor Fluid Intake : reports: No Symptoms Reported Musculoskeletal: reports: Joint Pain Integumentary: reports: Lesions (left eyebrow from fall) Neuro: reports: Weakness Endocrine: reports: Increased Thirst Hematology: reports: No Symptoms Reported Psychiatric: reports: Orientated x3, Anxious Patient History - Patient Medical History Hx Anemia: No Hx Asthma: No Hx Chronic Obstructive Pulmonary Disease (COPD): No Hx Cancer: No Hx Cardiac Disorders: No Hx Congestive Heart Failure: No Hx Hypertension: No Hx Hypercholesterolemia: No Hx Pacemaker: No HX Cerebrovascular Accident: No Hx Seizures: No Hx Dementia: No Hx Diabetes: No Hx Gastrointestinal Disorders: No Hx Liver Disease: No Hx Genitourinary Disorders: No Hx Sexually Transmitted Disorders: No Hx Renal Disease (ESRD): No Hx Thyroid Disease: No Hx Human Immunodeficiency Virus (HIV): Yes (SINCE 1999 AND ON ATRIPLA; neuropathy) Hx Hepatitis C: No Hx Depression: No Hx Suicide Attempt: No Hx Bipolar Disorder: No Hx Schizophrenia: No - Patient Surgical History Past Surgical History: Yes Hx Neurologic Surgery: No Hx Cataract Extraction: No Hx Cardiac Surgery: No Hx Lung Surgery: No Hx Breast Surgery: No Hx Breast Biopsy: No Hx Abdominal Surgery: No Hx Appendectomy: No Hx Cholecystectomy: No Hx Genitourinary Surgery: No Hx Section: No Hx Orthopedic Surgery: No Other Surgical History: bilateral inguinal hernia repair in 03/2014 Anesthesia Reaction: No - PPD History Previous Implant?: No Documented Results: Negative w/proof Date: 05/12/18 Results: 0 mm PPD to be Administered?: No - Smoking Cessation Smoking history: Current every day smoker Have you smoked in the past 12 months: Yes Aproximately how many cigarettes per day: 8 Cigars Per Day: 0 Hx Chewing Tobacco Use: No Initiated information on smoking cessation: Yes 'Breaking Loose' booklet given: 09/21/18 - Substance & Tx. History Hx Alcohol Use: Yes Hx Substance Use: Yes Substance Use Type: Alcohol Hx Substance Use Treatment: Yes ([facility] ast detox 08/09/18 -08/12/18.) - Substances abused Alcohol Substance route: Oral Frequency: Daily Amount used: 1 pt. vodka Age of first use: 32 Date of last use: 09/20/18 Family Disease History - Family Disease History Family Disease History: CA: Grandparent (colon ca) Admission Physical Exam S - Vital Signs Vital Signs: Vital Signs - 24 hr 09/21/18 10:04 Temperature 98 F Pulse Rate 100 H Respiratory 18 Rate Blood Pressure 150/96 - Physical General Appearance: Yes: Disheveled (+bopdy ordor), Mild Distress, Cachetic, Tremorous, Sweating HEENTM: Yes: EOMI, Hearing grossly Normal, Normocephalic, Normal Voice, DARRIUS, Pharynx Normal, Other (periobital erythema left eye, abrasion on the left eyebrow, cheilitis) Respiratory: Yes: Chest Non-Tender, Lungs Clear, Normal Breath Sounds, No Respiratory Distress, No Accessory Muscle Use Neck: Yes: Within Normal Limits Breast: Yes: Breast Exam Deferred Cardiology: Yes: Regular Rhythm, Tachycardia Abdominal: Yes: Normal Bowel Sounds, Non Tender, Flat, Soft Genitourinary: Yes: Within Normal Limits Back: Yes: Normal Inspection Musculoskeletal: Yes: full range of Motion, Gait Steady, Pelvis Stable Extremities: Yes: Normal Capillary Refill, Normal Inspection, Normal Range of Motion, Non-Tender, Other (abrasion right knee) 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: Yes: baseball player 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 NML intact, Fully Oriented, Alert, Motor Strength 5/5, Depressed Affect Integumentary: Yes: Normal Color, Warm, Diaphoresis Lymphatic: Yes: Within Normal Limits - Diagnostic (1) Weight decrease Current Visit: Yes Status: Acute (2) Alcohol dependence with uncomplicated withdrawal Current Visit: Yes Status: Chronic (3) COPD (chronic obstructive pulmonary disease) Current Visit: Yes Status: Chronic Qualifiers: COPD type: chronic bronchitis Chronic bronchitis type: unspecified Qualified Code(s): J42 - Unspecified chronic bronchitis (4) Essential hypertension Current Visit: Yes Status: Chronic Comment: Report no meds (5) HIV (human immunodeficiency virus infection) Current Visit: Yes Status: Chronic Qualifiers: HIV symptom status: unspecified Qualified Code(s): B20 - Human immunodeficiency virus [HIV] disease (6) Nicotine dependence Current Visit: Yes Status: Chronic Qualifiers: Nicotine product type: cigarettes Substance use status: uncomplicated Qualified Code(s): F17.210 - Nicotine dependence, cigarettes, uncomplicated (7) Peripheral neuropathy Current Visit: Yes Status: Chronic Qualifiers: Peripheral neuropathy type: polyneuropathy associated with underlying disease Qualified Code(s): G63 - Polyneuropathy in diseases classified elsewhere Cleared for Admission [facility] - Detox or Rehab [facility] Level of Care: Medically Managed Detox Regimen/Protocol: Librium Breathalyzer - Breathalyzer Breathalyzer: 0.040 Urine Drug Screen - Test Device Lot number: [id number] Expiration date: 05/16/20 - Control Is test valid?: Yes - Results Drug screen NEGATIVE: No Urine drug screen results: JAJA-Cocaine, BZO-Benzodiazepines Inpatient Rehab Admission - Rehab Decision to Admit Inpatient rehab admission?: No
[2018-09-21] MEDS ORDERED: MAG HYDROX/AL HYDROX/SIMETH 30 ML UNIT-DOSE CUP PO PRN (10:54)
[2018-09-21] MEDS ORDERED: NICOTINE POLACRILEX 2 MG GUM BUC PRN (10:54)
[2018-09-21] MEDS ORDERED: IBUPROFEN 400 MG TABLET (FP) PO PRN (10:54)
[2018-09-21] MEDS ORDERED: chlordiazePOXIDE HCL 25 MG CAPSULE PO PRN (10:54)
[2018-09-21] MEDS ORDERED: MAGNESIUM CITRATE 300 ML BOTTLE PO PRN (10:54)
[2018-09-21] MEDS ORDERED: MAGNESIUM HYDROX 2400MG/30ML ORAL SUSPENSION 30 ML CUP PO PRN (10:54)
[2018-09-21] MEDS ORDERED: MENTHOL/PHENOL 1 EACH UD MM PRN (10:54)
[2018-09-21] MEDS ORDERED: BISMUTH SUBSALICYLATE 524 MG/30 ML UD PO PRN (10:54)
[2018-09-21] MEDS ORDERED: ACETAMINOPHEN 325 MG TABLET (FP) PO PRN ×2 (10:54)
[2018-09-21] MEDS ORDERED: METHOCARBAMOL 500 MG TABLET PO PRN (10:54)
[2018-09-21] MEDS: BACITRACIN 0.9 GM PACKET TP SCH ×2 (13:01→22:32)
[2018-09-21] MEDS: chlordiazePOXIDE HCL 25 MG CAPSULE PO SCH ×2 (17:40→22:32)
[2018-09-21 21:11] LABS: EPI CELLS 0.7 /HPF (0-5); URINE APPEARANCE TURBID; URINE BACTERIA 0.8 /hpf (NEGATIVE); URINE BILIRUBIN 1+ (NEGATIVE); URINE CASTS 4 /hpf (0-8); URINE COLOR DK YELLOW; URINE GLUCOSE (UA) NEGATIVE (NEGATIVE); URINE KETONE TRACE (NEGATIVE); URINE LEUK ESTERASE NEGATIVE (NEGATIVE); URINE NITRITE NEGATIVE (NEGATIVE); URINE PROTEIN 1+ (NEGATIVE); URINE RBC 1 /hpf (0-4); URINE WBC 1 /hpf (0-5)
[2018-09-21] MEDS ORDERED: MELATONIN 5 MG TABLETS PO PRN (22:00)
[2018-09-21] MEDS: THIAMINE HCL 100 MG TABLET (FP) PO SCH (22:31)
[2018-09-22] MEDS: chlordiazePOXIDE HCL 25 MG CAPSULE PO SCH ×4 (05:46→22:23)
[2018-09-22 10:16] LABS: HEMATOCRIT 35.6 % (35.4-49); HEMOGLOBIN 11.9 GM/dL (11.7-16.9); MCH 31.9 pg (25.7-33.7); MCHC 33.3 g/dl (32.0-35.9); MEAN CELL VOLUME 95.8 fl (80-96); MEAN PLT VOLUME 7.5 fl (7.5-11.1); PLATELET COUNT 211 K/MM3 (134-434); RBC 3.72 M/mm3 (4.00-5.60); RDW 15.5 % (11.9-15.9); WHITE BLOOD COUNT 3.2 K/mm3 (4.0-10.0)
[2018-09-22] MEDS: BACITRACIN 0.9 GM PACKET TP SCH ×2 (10:22→22:23)
[2018-09-22] MEDS: PRENATAL VITAMINS W/ FOLIC ACID TABLET (FP) PO SCH (10:24)
[2018-09-22] MEDS: NICOTINE 14 MG/24 HOURS TOPICAL PATCH TD SCH (10:24)
[2018-09-22 10:30] LABS: ALBUMIN 2.9 g/dl (3.4-5.0); ALK PHOS 119 U/L (45-117); ANION GAP 5 MMOL/L (8-16); BLOOD UREA NITROGEN 8 mg/dL (7-18); CALCIUM 8.3 mg/dL (8.5-10.1); CHLORIDE 102 mmol/L (98-107); CO2 30 mmol/L (21-32); CREATININE 0.6 mg/dL (0.55-1.3); GLUCOSE,RANDOM 79 mg/dL (74-106); POTASSIUM 4.1 mmol/L (3.5-5.1); SGOT/AST 121 U/L (15-37); SGPT/ALT 76 U/L (13-61); SODIUM 138 mmol/L (136-145); TOT PROT 6.9 g/dl (6.4-8.2)
--- NOTE | 2018-09-22 10:35 | PN ---
[facility] CIWA - CIWA Score Nausea/Vomitin-No Nausea/No Vomiting Muscle Tremors: 3 Anxiety: 1-Mildly Anxious Agitation: 2 Paroxysmal Sweats: 1-Minimal Palms Moist Orientation: 0-Oriented Tacttile Disturbances: 0-None Auditory Disturbances: 0-None Visual Disturbances: 0-None Headache: 1-Very Mild CIWA-Ar Total Score: 8 S Progress Note (SOAP) Subjective: patient reports doing well with librium regimen less tremor today tolerate food and fluid well Objective: 09/22/18 10:38 Vital Signs Temperature 98.6 F 09/22/18 10:23 Pulse Rate 130 H 09/22/18 10:23 Respiratory Rate 18 09/22/18 10:23 Blood Pressure 114/74 09/22/18 10:23 O2 Sat by Pulse Oximetry (%) Laboratory Last Values WBC 3.2 K/mm3 (4.0-10.0) L 09/22/18 07:00 RBC 3.72 M/mm3 (4.00-5.60) L 09/22/18 07:00 Hgb 11.9 GM/dL (11.7-16.9) 09/22/18 07:00 Hct 35.6 % (35.4-49) 09/22/18 07:00 MCV 95.8 fl (80-96) 09/22/18 07:00 MCH 31.9 pg (25.7-33.7) 09/22/18 07:00 MCHC 33.3 g/dl (32.0-35.9) 09/22/18 07:00 RDW 15.5 % (11.9-15.9) 09/22/18 07:00 Plt Count 211 K/MM3 (134-434) D 09/22/18 07:00 MPV 7.5 fl (7.5-11.1) D 09/22/18 07:00 Sodium 138 mmol/L (136-145) 09/22/18 07:00 Potassium 4.1 mmol/L (3.5-5.1) 09/22/18 07:00 Chloride 102 mmol/L (98-107) 09/22/18 07:00 Carbon Dioxide 30 mmol/L (21-32) 09/22/18 07:00 Anion Gap 5 MMOL/L (8-16) L 09/22/18 07:00 BUN 8 mg/dL (7-18) 09/22/18 07:00 Creatinine 0.6 mg/dL (0.55-1.3) 09/22/18 07:00 Creat Clearance w eGFR 139.37 (>60) 09/22/18 07:00 Random Glucose 79 mg/dL (74-106) 09/22/18 07:00 Calcium 8.3 mg/dL (8.5-10.1) L 09/22/18 07:00 Total Bilirubin 1.0 mg/dL (0.2-1) 09/22/18 07:00 AST 121 U/L (15-37) H 09/22/18 07:00 ALT 76 U/L (13-61) H 09/22/18 07:00 Alkaline Phosphatase 119 U/L (45-117) H 09/22/18 07:00 Total Protein 6.9 g/dl (6.4-8.2) 09/22/18 07:00 Albumin 2.9 g/dl (3.4-5.0) L 09/22/18 07:00 Urine Color Dk yellow 09/21/18 11:55 Urine Appearance Turbid 09/21/18 11:55 Urine pH 6.0 (5.0-8.0) 09/21/18 11:55 Ur Specific [place] 1.024 (1.010-1.035) 09/21/18 11:55 Urine Protein 1+ (NEGATIVE) H 09/21/18 11:55 Urine Glucose (UA) Negative (NEGATIVE) 09/21/18 11:55 Urine Ketones Trace (NEGATIVE) H 09/21/18 11:55 Urine Blood Negative (NEGATIVE) 09/21/18 11:55 Urine Nitrite Negative (NEGATIVE) 09/21/18 11:55 Urine Bilirubin 1+ (NEGATIVE) H 09/21/18 11:55 Urine Urobilinogen 1.0 mg/dL (0.2-1.0) 09/21/18 11:55 Ur Leukocyte Esterase Negative (NEGATIVE) 09/21/18 11:55 Urine WBC (Auto) 1 /hpf (0-5) 09/21/18 11:55 Urine RBC (Auto) 1 /hpf (0-4) 09/21/18 11:55 Urine Casts (Auto) 4 /hpf (0-8) 09/21/18 11:55 U Epithel Cells (Auto) 0.7 /HPF (0-5) 09/21/18 11:55 Urine Bacteria (Auto) 0.8 /hpf (NEGATIVE) 09/21/18 11:55 lab noted Assessment: 09/22/18 10:42 alcohol withdrawal sx Plan: continue detox
[2018-09-22] MEDS: THIAMINE HCL 100 MG TABLET (FP) PO SCH (22:23)
[2018-09-23] MEDS: chlordiazePOXIDE HCL 25 MG CAPSULE PO SCH ×2 (05:39→10:49)
[2018-09-23] MEDS: BACITRACIN 0.9 GM PACKET TP SCH ×2 (10:49→22:09)
[2018-09-23] MEDS: PRENATAL VITAMINS W/ FOLIC ACID TABLET (FP) PO SCH (10:49)
[2018-09-23] MEDS: NICOTINE 14 MG/24 HOURS TOPICAL PATCH TD SCH (10:50)
--- NOTE | 2018-09-23 12:09 | PN ---
[facility] CIWA - CIWA Score Nausea/Vomitin-No Nausea/No Vomiting Muscle Tremors: 1-None Visible, but [place] Anxiety: 1-Mildly Anxious Agitation: 1-Slight > Activity Paroxysmal Sweats: 1-Minimal Palms Moist Orientation: 1-Uncertain about Date Tacttile Disturbances: 0-None Auditory Disturbances: 0-None Visual Disturbances: 0-None Headache: 0-None Present CIWA-Ar Total Score: 5 S Progress Note (SOAP) Subjective: feeling ok today attend group today well rested Objective: 09/23/18 12:08 Vital Signs Temperature 97.3 F L 09/23/18 09:26 Pulse Rate 102 H 09/23/18 09:26 Respiratory Rate 18 09/23/18 09:26 Blood Pressure 145/95 09/23/18 09:26 O2 Sat by Pulse Oximetry (%) Laboratory Last Values WBC 3.2 K/mm3 (4.0-10.0) L 09/22/18 07:00 RBC 3.72 M/mm3 (4.00-5.60) L 09/22/18 07:00 Hgb 11.9 GM/dL (11.7-16.9) 09/22/18 07:00 Hct 35.6 % (35.4-49) 09/22/18 07:00 MCV 95.8 fl (80-96) 09/22/18 07:00 MCH 31.9 pg (25.7-33.7) 09/22/18 07:00 MCHC 33.3 g/dl (32.0-35.9) 09/22/18 07:00 RDW 15.5 % (11.9-15.9) 09/22/18 07:00 Plt Count 211 K/MM3 (134-434) D 09/22/18 07:00 MPV 7.5 fl (7.5-11.1) D 09/22/18 07:00 Sodium 138 mmol/L (136-145) 09/22/18 07:00 Potassium 4.1 mmol/L (3.5-5.1) 09/22/18 07:00 Chloride 102 mmol/L (98-107) 09/22/18 07:00 Carbon Dioxide 30 mmol/L (21-32) 09/22/18 07:00 Anion Gap 5 MMOL/L (8-16) L 09/22/18 07:00 BUN 8 mg/dL (7-18) 09/22/18 07:00 Creatinine 0.6 mg/dL (0.55-1.3) 09/22/18 07:00 Creat Clearance w eGFR 139.37 (>60) 09/22/18 07:00 Random Glucose 79 mg/dL (74-106) 09/22/18 07:00 Calcium 8.3 mg/dL (8.5-10.1) L 09/22/18 07:00 Total Bilirubin 1.0 mg/dL (0.2-1) 09/22/18 07:00 AST 121 U/L (15-37) H 09/22/18 07:00 ALT 76 U/L (13-61) H 09/22/18 07:00 Alkaline Phosphatase 119 U/L (45-117) H 09/22/18 07:00 Total Protein 6.9 g/dl (6.4-8.2) 09/22/18 07:00 Albumin 2.9 g/dl (3.4-5.0) L 09/22/18 07:00 Urine Color Dk yellow 09/21/18 11:55 Urine Appearance Turbid 09/21/18 11:55 Urine pH 6.0 (5.0-8.0) 09/21/18 11:55 Ur Specific [place] 1.024 (1.010-1.035) 09/21/18 11:55 Urine Protein 1+ (NEGATIVE) H 09/21/18 11:55 Urine Glucose (UA) Negative (NEGATIVE) 09/21/18 11:55 Urine Ketones Trace (NEGATIVE) H 09/21/18 11:55 Urine Blood Negative (NEGATIVE) 09/21/18 11:55 Urine Nitrite Negative (NEGATIVE) 09/21/18 11:55 Urine Bilirubin 1+ (NEGATIVE) H 09/21/18 11:55 Urine Urobilinogen 1.0 mg/dL (0.2-1.0) 09/21/18 11:55 Ur Leukocyte Esterase Negative (NEGATIVE) 09/21/18 11:55 Urine WBC (Auto) 1 /hpf (0-5) 09/21/18 11:55 Urine RBC (Auto) 1 /hpf (0-4) 09/21/18 11:55 Urine Casts (Auto) 4 /hpf (0-8) 09/21/18 11:55 U Epithel Cells (Auto) 0.7 /HPF (0-5) 09/21/18 11:55 Urine Bacteria (Auto) 0.8 /hpf (NEGATIVE) 09/21/18 11:55 RPR Titer Nonreactive (NONREACTIVE) 09/22/18 07:00 lab noted repeat ast Assessment: 09/23/18 12:34 withdrawal sx Plan: continue detox
[2018-09-23] MEDS ORDERED: chlordiazePOXIDE HCL 10 MG CAPSULE PO PRN (17:00)
[2018-09-23] MEDS: chlordiazePOXIDE HCL 10 MG CAPSULE PO SCH ×2 (17:18→22:09)
[2018-09-23] MEDS: THIAMINE HCL 100 MG TABLET (FP) PO SCH (22:09)
[2018-09-24] MEDS: chlordiazePOXIDE HCL 10 MG CAPSULE PO SCH ×2 (06:28→10:03)
[2018-09-24] MEDS: BACITRACIN 0.9 GM PACKET TP SCH (10:03)
[2018-09-24] MEDS: PRENATAL VITAMINS W/ FOLIC ACID TABLET (FP) PO SCH (10:03)
[2018-09-24] MEDS: NICOTINE 14 MG/24 HOURS TOPICAL PATCH TD SCH (10:03)
[2018-09-24 13:14] VITALS: BP 128/80; PULSE 103; TEMP 98
--- NOTE | 2018-09-24 13:44 | DS ---
[facility] Detox Discharge Summary Admission Date: 09/21/18 Discharge Date: 09/24/18 - History Present History: Alcohol Dependence Additional Comments: 58 years old male admitted on 09/21/18 for alcohol withdrawal stabilization feeling better today preferring to begin rehab today alert no acute distress denies suicidal ideation - Physical Exam Results Vital Signs: Vital Signs Temperature 98.0 F 09/24/18 13:13 Pulse Rate 103 H 09/24/18 13:13 Respiratory Rate 20 09/24/18 13:13 Blood Pressure 128/80 09/24/18 13:13 O2 Sat by Pulse Oximetry (%) Pertinent Admission Physical Exam Findings: alcohol withdrawal sx Laboratory Last Values WBC 3.2 K/mm3 (4.0-10.0) L 09/22/18 07:00 RBC 3.72 M/mm3 (4.00-5.60) L 09/22/18 07:00 Hgb 11.9 GM/dL (11.7-16.9) 09/22/18 07:00 Hct 35.6 % (35.4-49) 09/22/18 07:00 MCV 95.8 fl (80-96) 09/22/18 07:00 MCH 31.9 pg (25.7-33.7) 09/22/18 07:00 MCHC 33.3 g/dl (32.0-35.9) 09/22/18 07:00 RDW 15.5 % (11.9-15.9) 09/22/18 07:00 Plt Count 211 K/MM3 (134-434) D 09/22/18 07:00 MPV 7.5 fl (7.5-11.1) D 09/22/18 07:00 Sodium 138 mmol/L (136-145) 09/22/18 07:00 Potassium 4.1 mmol/L (3.5-5.1) 09/22/18 07:00 Chloride 102 mmol/L (98-107) 09/22/18 07:00 Carbon Dioxide 30 mmol/L (21-32) 09/22/18 07:00 Anion Gap 5 MMOL/L (8-16) L 09/22/18 07:00 BUN 8 mg/dL (7-18) 09/22/18 07:00 Creatinine 0.6 mg/dL (0.55-1.3) 09/22/18 07:00 Creat Clearance w eGFR 139.37 (>60) 09/22/18 07:00 Random Glucose 79 mg/dL (74-106) 09/22/18 07:00 Calcium 8.3 mg/dL (8.5-10.1) L 09/22/18 07:00 Total Bilirubin 1.0 mg/dL (0.2-1) 09/22/18 07:00 AST 116 U/L (15-37) H 09/24/18 07:00 ALT 76 U/L (13-61) H 09/22/18 07:00 Alkaline Phosphatase 119 U/L (45-117) H 09/22/18 07:00 Total Protein 6.9 g/dl (6.4-8.2) 09/22/18 07:00 Albumin 2.9 g/dl (3.4-5.0) L 09/22/18 07:00 Urine Color Dk yellow 09/21/18 11:55 Urine Appearance Turbid 09/21/18 11:55 Urine pH 6.0 (5.0-8.0) 09/21/18 11:55 Ur Specific [place] 1.024 (1.010-1.035) 09/21/18 11:55 Urine Protein 1+ (NEGATIVE) H 09/21/18 11:55 Urine Glucose (UA) Negative (NEGATIVE) 09/21/18 11:55 Urine Ketones Trace (NEGATIVE) H 09/21/18 11:55 Urine Blood Negative (NEGATIVE) 09/21/18 11:55 Urine Nitrite Negative (NEGATIVE) 09/21/18 11:55 Urine Bilirubin 1+ (NEGATIVE) H 09/21/18 11:55 Urine Urobilinogen 1.0 mg/dL (0.2-1.0) 09/21/18 11:55 Ur Leukocyte Esterase Negative (NEGATIVE) 09/21/18 11:55 Urine WBC (Auto) 1 /hpf (0-5) 09/21/18 11:55 Urine RBC (Auto) 1 /hpf (0-4) 09/21/18 11:55 Urine Casts (Auto) 4 /hpf (0-8) 09/21/18 11:55 U Epithel Cells (Auto) 0.7 /HPF (0-5) 09/21/18 11:55 Urine Bacteria (Auto) 0.8 /hpf (NEGATIVE) 09/21/18 11:55 RPR Titer Nonreactive (NONREACTIVE) 09/22/18 07:00 lab noted - Treatment Hospital Course: Detox Protocol Followed, Detoxed Safely, Responded well, Discharged Condition Good, Rehab Referral Accepted Patient has Accepted a Rehab Referral to: infectious disease specialist - Medication Discharge Medications: Ambulatory Orders Efavirenz/Emtricitab/Tenofovir [Atripla Tablet -] 1 tab PO DAILY 08/29/14 Gabapentin 300 mg PO TID 10/24/17 - Diagnosis (1) Weight decrease Status: Acute (2) Alcohol dependence with uncomplicated withdrawal Status: Acute (3) COPD (chronic obstructive pulmonary disease) Status: Chronic Qualifiers: COPD type: chronic bronchitis Chronic bronchitis type: unspecified Qualified Code(s): J42 - Unspecified chronic bronchitis (4) Essential hypertension Status: Chronic (5) HIV (human immunodeficiency virus infection) Status: Chronic Qualifiers: HIV symptom status: asymptomatic Qualified Code(s): Z21 - Asymptomatic human immunodeficiency virus [HIV] infection status (6) Nicotine dependence Status: Acute Qualifiers: Nicotine product type: cigarettes Substance use status: in withdrawal Qualified Code(s): F17.213 - Nicotine dependence, cigarettes, with withdrawal - AMA Did Patient Leave Against Medical Advice: No
[2018-09-24] MEDS ORDERED: chlordiazePOXIDE HCL 10 MG CAPSULE PO SCH (17:00)
== END 2018-09-24 14:00 | disposition home or self-care (01) | DRG 775 ==
LOC: YASAS 09:01 → Y3N 11:24
PROVIDERS: ADMIT Surgery; ATTEND Surgery
PROC: HZ2ZZZZ Detoxification Services for Substance Abuse Treatment (ICD-10-PCS; principal; 2018-09-21)
DX: F10.230 Alcohol dependence with withdrawal, uncomplicated (principal); F17.213 Nicotine dependence, cigarettes, with withdrawal; I10 Essential (primary) hypertension; J42 Unspecified chronic bronchitis; Z21 Asymptomatic human immunodeficiency virus [HIV] infection status; R63.4 Abnormal weight loss; R00.0 Tachycardia, unspecified; G63 Polyneuropathy in diseases classified elsewhere
CPT/HCPCS: 36415; 80053; 81003; 84450; 85027; 86593

== ENCOUNTER 2018-10-21 10:42 | Inpatient (IN) | payer OTHER ==
[2018-10-21 11:55] VITALS: BMI 18.4
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
[2018-10-21] MEDS ORDERED: hydrOXYzine PAMOATE 25 MG CAPSULE (FP) PO PRN (12:52)
[2018-10-21] MEDS ORDERED: IBUPROFEN 400 MG TABLET (FP) PO PRN (12:52)
[2018-10-21] MEDS ORDERED: DICYCLOMINE HCL 10 MG CAPSULE PO PRN (12:52)
[2018-10-21] MEDS ORDERED: MENTHOL/PHENOL 1 EACH UD MM PRN (12:52)
[2018-10-21] MEDS ORDERED: MELATONIN 5 MG TABLETS PO PRN (12:52)
[2018-10-21] MEDS ORDERED: MAGNESIUM CITRATE 300 ML BOTTLE PO PRN (12:52)
[2018-10-21] MEDS ORDERED: chlordiazePOXIDE HCL 10 MG CAPSULE PO PRN (12:52)
[2018-10-21] MEDS ORDERED: NICOTINE POLACRILEX 2 MG GUM BUC PRN (12:52)
[2018-10-21] MEDS ORDERED: MAGNESIUM HYDROX 2400MG/30ML ORAL SUSPENSION 30 ML CUP PO PRN (12:52)
[2018-10-21] MEDS ORDERED: MAG HYDROX/AL HYDROX/SIMETH 30 ML UNIT-DOSE CUP PO PRN (12:52)
[2018-10-21] MEDS ORDERED: METHOCARBAMOL 500 MG TABLET PO PRN (12:52)
[2018-10-21] MEDS ORDERED: ACETAMINOPHEN 325 MG TABLET (FP) PO PRN ×2 (12:52)
[2018-10-21] MEDS: GABAPENTIN 300 MG CAPSULE (FP) PO SCH ×2 (14:11→22:36)
[2018-10-21 19:34] LABS: HEMATOCRIT 40.3 % (35.4-49); HEMOGLOBIN 13.3 GM/dL (11.7-16.9); MCH 31.7 pg (25.7-33.7); MCHC 32.8 g/dl (32.0-35.9); MEAN CELL VOLUME 96.6 fl (80-96); MEAN PLT VOLUME 7.9 fl (7.5-11.1); PLATELET COUNT 132 K/MM3 (134-434); RBC 4.18 M/mm3 (4.00-5.60); RDW 15.5 % (11.9-15.9)
[2018-10-21 20:03] LABS: ALBUMIN 3.8 g/dl (3.4-5.0); ALK PHOS 121 U/L (45-117); ANION GAP 7 MMOL/L (8-16); BILIRUBIN,TOTAL 0.7 mg/dL (0.2-1); BLOOD UREA NITROGEN 7 mg/dL (7-18); CALCIUM 9.3 mg/dL (8.5-10.1); CHLORIDE 104 mmol/L (98-107); CO2 29 mmol/L (21-32); CREATININE 0.7 mg/dL (0.55-1.3); GLUCOSE,RANDOM 153 mg/dL (74-106); POTASSIUM 4.2 mmol/L (3.5-5.1); SGOT/AST 117 U/L (15-37); SGPT/ALT 58 U/L (13-61); SODIUM 140 mmol/L (136-145); TOT PROT 8.5 g/dl (6.4-8.2)
[2018-10-21] MEDS: BICTEGRAV/EMTRICIT/TENOFOV (BIKTARVY) 50-200-25 MG TABLET PO SCH (22:35)
[2018-10-21] MEDS: chlordiazePOXIDE HCL 25 MG CAPSULE PO SCH (22:35)
[2018-10-21] MEDS: THIAMINE HCL 100 MG TABLET (FP) PO SCH (22:36)
[2018-10-22] MEDS: chlordiazePOXIDE HCL 25 MG CAPSULE PO SCH ×2 (05:19→13:09)
[2018-10-22] MEDS: GABAPENTIN 300 MG CAPSULE (FP) PO SCH ×3 (05:19→22:28)
--- NOTE | 2018-10-22 09:47 | PN ---
S CIWA - CIWA Score Nausea/Vomitin-Mild Nausea/No Vomiting Muscle Tremors: 3 Anxiety: 2 Agitation: 2 Paroxysmal Sweats: 1-Minimal Palms Moist Orientation: 3-Disoriented Date>2 days Tacttile Disturbances: 0-None Auditory Disturbances: 0-None Visual Disturbances: 0-None Headache: 2-Mild CIWA-Ar Total Score: 14 S Progress Note (SOAP) Subjective: ambulate with cane headaches doing ok with librium detox regimen resting on bed tired Objective: 10/22/18 09:48 Vital Signs Temperature 96.6 F L 10/22/18 09:40 Pulse Rate 107 H 10/22/18 09:40 Respiratory Rate 20 10/22/18 09:40 Blood Pressure 163/100 10/22/18 09:40 O2 Sat by Pulse Oximetry (%) Laboratory Last Values WBC 4.0 K/mm3 (4.0-10.0) 10/21/18 13:05 RBC 4.18 M/mm3 (4.00-5.60) 10/21/18 13:05 Hgb 13.3 GM/dL (11.7-16.9) 10/21/18 13:05 Hct 40.3 % (35.4-49) 10/21/18 13:05 MCV 96.6 fl (80-96) H 10/21/18 13:05 MCH 31.7 pg (25.7-33.7) 10/21/18 13:05 MCHC 32.8 g/dl (32.0-35.9) 10/21/18 13:05 RDW 15.5 % (11.9-15.9) 10/21/18 13:05 Plt Count 132 K/MM3 (134-434) L D 10/21/18 13:05 MPV 7.9 fl (7.5-11.1) 10/21/18 13:05 Sodium 140 mmol/L (136-145) 10/21/18 13:05 Potassium 4.2 mmol/L (3.5-5.1) 10/21/18 13:05 Chloride 104 mmol/L (98-107) 10/21/18 13:05 Carbon Dioxide 29 mmol/L (21-32) 10/21/18 13:05 Anion Gap 7 MMOL/L (8-16) L 10/21/18 13:05 BUN 7 mg/dL (7-18) 10/21/18 13:05 Creatinine 0.7 mg/dL (0.55-1.3) 10/21/18 13:05 Creat Clearance w eGFR 116.66 (>60) 10/21/18 13:05 Random Glucose 153 mg/dL (74-106) H 10/21/18 13:05 Calcium 9.3 mg/dL (8.5-10.1) 10/21/18 13:05 Total Bilirubin 0.7 mg/dL (0.2-1) 10/21/18 13:05 AST 117 U/L (15-37) H 10/21/18 13:05 ALT 58 U/L (13-61) 10/21/18 13:05 Alkaline Phosphatase 121 U/L (45-117) H 10/21/18 13:05 Total Protein 8.5 g/dl (6.4-8.2) H 10/21/18 13:05 Albumin 3.8 g/dl (3.4-5.0) 10/21/18 13:05 RPR Titer Nonreactive (NONREACTIVE) 10/21/18 13:05 lab noted ast elevation patient wants librium alcohol detox protocol 10/22/18 09:54 Assessment: 10/22/18 09:54 withdrawal sx Plan: continue detox
[2018-10-22] MEDS ORDERED: cloNIDine HCL 0.1 MG TABLET PO PRN ×2 (09:52→09:56)
[2018-10-22] MEDS ORDERED: PATIENT'S OWN MEDICATION (NON-FORMULARY) (Efavirenz/Emtricitab/Tenofovir 1 TAB) PO SCH (10:00)
[2018-10-22] MEDS: PRENATAL VITAMINS W/ FOLIC ACID TABLET (FP) PO SCH (10:13)
[2018-10-22] MEDS: BICTEGRAV/EMTRICIT/TENOFOV (BIKTARVY) 50-200-25 MG TABLET PO SCH (22:28)
[2018-10-22] MEDS: chlordiazePOXIDE 5 MG CAPSULE PO SCH (22:28)
[2018-10-22] MEDS: THIAMINE HCL 100 MG TABLET (FP) PO SCH (22:28)
[2018-10-23] MEDS: GABAPENTIN 300 MG CAPSULE (FP) PO SCH ×3 (05:22→22:13)
[2018-10-23] MEDS: chlordiazePOXIDE 5 MG CAPSULE PO SCH ×2 (05:22→13:42)
[2018-10-23] MEDS: PRENATAL VITAMINS W/ FOLIC ACID TABLET (FP) PO SCH (10:21)
--- NOTE | 2018-10-23 10:48 | PN ---
[facility] CIWA - CIWA Score Nausea/Vomitin-Mild Nausea/No Vomiting Muscle Tremors: 2 Anxiety: 2 Agitation: 2 Paroxysmal Sweats: 1-Minimal Palms Moist Orientation: 1-Uncertain about Date Tacttile Disturbances: 0-None Auditory Disturbances: 0-None Visual Disturbances: 0-None Headache: 1-Very Mild CIWA-Ar Total Score: 10 S Progress Note (SOAP) Subjective: feeling better today agrees to return to infectious disease specialist for medical and mental issues Objective: 10/23/18 10:47 Vital Signs Temperature 96.7 F L 10/23/18 09:01 Pulse Rate 89 10/23/18 09:01 Respiratory Rate 18 10/23/18 09:01 Blood Pressure 132/85 10/23/18 09:01 O2 Sat by Pulse Oximetry (%) Laboratory Last Values WBC 4.0 K/mm3 (4.0-10.0) 10/21/18 13:05 RBC 4.18 M/mm3 (4.00-5.60) 10/21/18 13:05 Hgb 13.3 GM/dL (11.7-16.9) 10/21/18 13:05 Hct 40.3 % (35.4-49) 10/21/18 13:05 MCV 96.6 fl (80-96) H 10/21/18 13:05 MCH 31.7 pg (25.7-33.7) 10/21/18 13:05 MCHC 32.8 g/dl (32.0-35.9) 10/21/18 13:05 RDW 15.5 % (11.9-15.9) 10/21/18 13:05 Plt Count 132 K/MM3 (134-434) L D 10/21/18 13:05 MPV 7.9 fl (7.5-11.1) 10/21/18 13:05 Sodium 140 mmol/L (136-145) 10/21/18 13:05 Potassium 4.2 mmol/L (3.5-5.1) 10/21/18 13:05 Chloride 104 mmol/L (98-107) 10/21/18 13:05 Carbon Dioxide 29 mmol/L (21-32) 10/21/18 13:05 Anion Gap 7 MMOL/L (8-16) L 10/21/18 13:05 BUN 7 mg/dL (7-18) 10/21/18 13:05 Creatinine 0.7 mg/dL (0.55-1.3) 10/21/18 13:05 Creat Clearance w eGFR 116.66 (>60) 10/21/18 13:05 Random Glucose 153 mg/dL (74-106) H 10/21/18 13:05 Calcium 9.3 mg/dL (8.5-10.1) 10/21/18 13:05 Total Bilirubin 0.7 mg/dL (0.2-1) 10/21/18 13:05 AST 117 U/L (15-37) H 10/21/18 13:05 ALT 58 U/L (13-61) 10/21/18 13:05 Alkaline Phosphatase 121 U/L (45-117) H 10/21/18 13:05 Total Protein 8.5 g/dl (6.4-8.2) H 10/21/18 13:05 Albumin 3.8 g/dl (3.4-5.0) 10/21/18 13:05 RPR Titer Nonreactive (NONREACTIVE) 10/21/18 13:05 lab noted Assessment: 10/23/18 10:47 mild alcohol withdrawal sx Plan: continue detox
[2018-10-23] MEDS ORDERED: chlordiazePOXIDE HCL 10 MG CAPSULE PO PRN (21:00)
[2018-10-23] MEDS: chlordiazePOXIDE HCL 10 MG CAPSULE PO SCH (22:13)
[2018-10-23] MEDS: THIAMINE HCL 100 MG TABLET (FP) PO SCH (22:13)
[2018-10-23] MEDS: BICTEGRAV/EMTRICIT/TENOFOV (BIKTARVY) 50-200-25 MG TABLET PO SCH (22:15)
[2018-10-24] MEDS: GABAPENTIN 300 MG CAPSULE (FP) PO SCH (05:38)
[2018-10-24] MEDS: chlordiazePOXIDE HCL 10 MG CAPSULE PO SCH (05:38)
[2018-10-24 06:09] VITALS: BP 125/82; PULSE 94; TEMP 97.4
--- NOTE | 2018-10-24 18:05 | DS ---
[facility] Detox Discharge Summary Admission Date: 10/21/18 Discharge Date: 10/24/18 - History Present History: Alcohol Dependence, Cocaine Dependence Additional Comments: PATIENT GOING HOME, REFERRED TO [facility] OUTPATIENT SUBSTANCE USE TREATMENT PROGRAM ([place], [place]) FOR AFTERCARE. PATIENT ADVISED TO FOLLOW-UP WITH DIRECTOR OF GROUP SALES AFTER DISCHARGE FROM DETOX FOR GENERAL MEDICAL ASSESSMENT AND FOR ELEVATED LIVER ENZYMES AND FOR LOW PLATELET LEVEL NOTED ON DETOX ADMISSION LABORATORY ASSESSMENT. PATIENT VERBALIZED UNDERSTANDING OF RECOMMENDATION. COPIES OF RESULTS OF ALL LABS DRAWN WHILE ADMITTED FOR DETOX GIVEN TO PATIENT AT TIME OF DISCHARGE FROM DETOX UNIT. PATIENT WAS DISCHARGED FROM DETOX UNIT IN STABLE MEDICAL CONDITION. Pertinent Past History: Nicotine Dependence, H.I.V., History Of Neuropathy of Lower Extremities, Thrombocytopenia, Elevated Liver Enzymes (While Admitted for Detox). - Physical Exam Results Vital Signs: Vital Signs Temperature 97.4 F L 10/24/18 06:08 Pulse Rate 94 H 10/24/18 06:08 Respiratory Rate 18 10/24/18 06:08 Blood Pressure 125/82 10/24/18 06:08 O2 Sat by Pulse Oximetry (%) Pertinent Admission Physical Exam Findings: WITHDRAWAL SYMPTOMS. Laboratory Tests 10/21/18 10/21/18 10/21/18 13:05 13:05 13:05 WBC 4.0 RBC 4.18 Hgb 13.3 Hct 40.3 MCV 96.6 H MCH 31.7 MCHC 32.8 RDW 15.5 Plt Count 132 L D MPV 7.9 Sodium 140 Potassium 4.2 Chloride 104 Carbon Dioxide 29 Anion Gap 7 L BUN 7 Creatinine 0.7 Creat Clearance w eGFR 116.66 Random Glucose 153 H Calcium 9.3 Total Bilirubin 0.7 AST 117 H ALT 58 Alkaline Phosphatase 121 H Total Protein 8.5 H Albumin 3.8 RPR Titer Nonreactive LABS NOTED. - Treatment Hospital Course: Detox Protocol Followed, Detoxed Safely, Responded well, Discharged Condition Good Patient has Accepted a Rehab Referral to: PT. REFERRED TO [facility] SUBSTANCE USE TREATMENT OP PROGRAM ([place], [place]). - Medication Discharge Medications: Ambulatory Orders Efavirenz/Emtricitab/Tenofovir [Atripla Tablet -] 1 tab PO DAILY 08/29/14 Gabapentin 300 mg PO TID 10/24/17 Bictegrav/Emtricit/Tenofov Ala [Biktarvy 50-200-25 mg Tablet] 1 each PO HS 10/21 Folic Acid 1 mg PO DAILY 10/21/18 Multivitamins [Multivit ([facility] Formulary)] 1 tablet PO DAILY 10/21/18 - Diagnosis (1) Alcohol dependence with uncomplicated withdrawal Status: Acute (2) Nicotine dependence Status: Acute Qualifiers: Nicotine product type: cigarettes Substance use status: in withdrawal Qualified Code(s): F17.213 - Nicotine dependence, cigarettes, with withdrawal (3) Cocaine dependence Status: Chronic Qualifiers: Substance use status: in withdrawal Qualified Code(s): F14.23 - Cocaine dependence with withdrawal - AMA Did Patient Leave Against Medical Advice: No
== END 2018-10-24 08:54 | disposition home or self-care (01) | DRG 774 ==
LOC: YASAS 10:42 → Y3N 13:13
PROVIDERS: ADMIT Surgery; ATTEND Surgery
PROC: HZ2ZZZZ Detoxification Services for Substance Abuse Treatment (ICD-10-PCS; principal; 2018-10-21)
DX: F10.230 Alcohol dependence with withdrawal, uncomplicated (principal); F10.220 Alcohol dependence with intoxication, uncomplicated; F14.20 Cocaine dependence, uncomplicated; F17.213 Nicotine dependence, cigarettes, with withdrawal; Z21 Asymptomatic human immunodeficiency virus [HIV] infection status; G62.9 Polyneuropathy, unspecified; R26.2 Difficulty in walking, not elsewhere classified; Z99.89 Dependence on other enabling machines and devices
CPT/HCPCS: 36415; 80053; 85027; 86593; J0735